=== PATIENT | female | born 1990 | race Caucasian/White ===

== ENCOUNTER 2020-01-28 08:29 | Inpatient (IN) | payer OTHER ==
[2020-01-28] MEDS ORDERED: Ondansetron 4 MG/2 ML SDV IVPUSH PRN (09:23)
[2020-01-28] MEDS ORDERED: Lidocaine 1% 50 ML MDV INJECT PRN (10:32)
[2020-01-28] MEDS ORDERED: Water For Irrigation,Sterile 1,000 ML Container IRR PRN (10:32)
[2020-01-28] MEDS ORDERED: Sodium Chloride 0.9% 10 ML SDV IV PRN ×2 (10:32→12:12)
[2020-01-28] MEDS ORDERED: Misoprostol 25 MCG (1/4 of 100 MCG) Tab VAG PRN (10:32)
[2020-01-28] MEDS ORDERED: Butorphanol 1 MG/ML SDV IVPUSH PRN (10:32)
[2020-01-28] MEDS ORDERED: Carboprost Tromethamine 250 MCG/1 ML Amp IM PRN (10:32)
[2020-01-28] MEDS ORDERED: Methylergonovine 0.2 MG/1 ML Amp IM PRN (10:32)
[2020-01-28] MEDS ORDERED: Terbutaline 1 MG/ML SDV SUBCUT PRN (10:32)
[2020-01-28] MEDS ORDERED: Sodium Chloride 0.9% 10 ML Syringe FLUSH PRN (10:32)
[2020-01-28] MEDS ORDERED: Misoprostol 200 MCG Tab PO PRN (10:32)
[2020-01-28] MEDS ORDERED: Tranexamic Acid 1,000 MG in Sodium Chloride 0.9% 100 ML IV PRN (10:32)
[2020-01-28 10:43] LABS: BLOOD UREA NITROGEN,BUN 9 mg/dL (7.0-18.0); CARBON DIOXIDE,CO2 23.7 mmol/L (21.0-32.0); CHLORIDE,CL 104 mmol/L (98-107); GLUCOSE RANDOM 98 mg/dL (74-106); SODIUM,NA 140 mmol/L (136-145)
[2020-01-28] MEDS ORDERED: Lactated Ringers 1,000 ML IV SCH (10:45)
[2020-01-28] MEDS ORDERED: Oxytocin/0.9 % Sodium Chloride 30 UNIT/500 ML BAG IV SCH ×2 (10:45)
[2020-01-28] MEDS ORDERED: Magnesium Sulfate/Water 2 GM in Premix Bag 1 BAG IV ONE (12:12)
[2020-01-28] MEDS ORDERED: Calcium Gluconate 10% 1 GM/10 ML SDV IV PRN (12:12)
[2020-01-28] MEDS ORDERED: Magnesium Sulfate/Water 4 GM in Premix Bag 1 BAG IV ONE (12:12)
[2020-01-28] MEDS ORDERED: Acetaminophen 500 MG Tab PO ONE (12:30)
[2020-01-28] MEDS: Magnesium Sulfate/Water 20 GM/500 ML BAG IV SCH (14:06)
[2020-01-28] MEDS: Misoprostol 25 MCG (1/4 of 100 MCG) Tab VAG PRN ×2 (15:24→21:27)
[2020-01-29] MEDS: Magnesium Sulfate/Water 20 GM/500 ML BAG IV SCH ×3 (00:09→20:19)
[2020-01-29] MEDS: Misoprostol 25 MCG (1/4 of 100 MCG) Tab VAG PRN ×2 (01:46→05:37)
[2020-01-29] MEDS: Nalbuphine 10 MG/1 ML Vial IVPUSH PRN ×2 (01:57→07:17)
[2020-01-29] MEDS: Sodium Chloride 0.9% 2.5 ML Syringe FLUSH PRN ×2 (01:59→07:17)
[2020-01-29] MEDS ORDERED: Misoprostol 25 MCG (1/4 of 100 MCG) Tab PO ONE (06:29)
[2020-01-29 06:53] LABS: BLOOD UREA NITROGEN,BUN 6 mg/dL (7.0-18.0); CARBON DIOXIDE,CO2 22.6 mmol/L (21.0-32.0); CHLORIDE,CL 104 mmol/L (98-107); GLUCOSE RANDOM 113 mg/dL (74-106); POTASSIUM,K 2.8 mmol/L (3.5-5.1); SODIUM,NA 139 mmol/L (136-145)
[2020-01-29] MEDS: Lactated Ringers 1,000 ML IV SCH ×2 (11:20→13:00)
[2020-01-29] MEDS ORDERED: Ropivacaine HCl/PF 100 ML ONE ×2 (12:20→22:11)
[2020-01-29] MEDS ORDERED: Ropivacaine 0.2% PF 2 MG/ML 20 ML SDV ONE (12:20)
[2020-01-29] MEDS ORDERED: fentaNYL 100 MCG/2 ML SDV ONE (12:20)
--- NOTE | 2020-01-29 13:04 | PCM.PREANE ---
Preanesthetic Assessment - Procedure Proposed Procedure: LINDA - Anesthesia/Transfusion/Family Hx Anesthesia History: Prior Anesthesia Without Reaction Family History of Anesthesia Reaction: No Transfusion History: No Prior Transfusion(s) Intubation History: Unknown - Review of Systems General: No Symptoms Pulmonary: No Symptoms Cardiovascular: Other ( induced HTN) Gastrointestinal: No Symptoms Neurological: No Symptoms Other: Reports: None (Anxious about situation. K 2.8) - Physical Assessment NPO Status Date: 01/29/20 NPO Status Time: 12:00 (Ice Chips) Height: 1.6 m Weight: 69.4 kg ASA Class: 3 Mental Status: Alert & Oriented x3 Airway Class: Mallampati = 2 Dentition: Reports: Normal Dentition Thyro-Mental Finger Breadths: 3 Mouth Opening Finger Breadths: 3 ROM/Head Extension: Full Lungs: Clear to Auscultation Cardiovascular: Regular Rate - Lab Values: Laboratory Last Values WBC 7.09 K/uL (4.0-11.0) 01/28/20 10:00 RBC 3.88 M/uL (4.30-5.90) L 01/28/20 10:00 Hgb 12.4 g/dL (12.0-16.0) 01/28/20 10:00 Hct 37.9 % (36.0-46.0) 01/28/20 10:00 MCV 97.7 fL (80.0-98.0) 01/28/20 10:00 MCH 32.0 pg (27.0-32.0) 01/28/20 10:00 MCHC 32.7 g/dL (31.0-37.0) 01/28/20 10:00 RDW Std Deviation 50.7 fl (28.0-62.0) 01/28/20 10:00 RDW Coeff of Hadley 14 % (11.0-15.0) 01/28/20 10:00 Plt Count 177 K/uL (150-400) 01/28/20 10:00 MPV 11.30 fL (7.40-12.00) 01/28/20 10:00 Neut % (Auto) 74.6 % (48.0-80.0) 01/28/20 10:00 Lymph % (Auto) 19.7 % (16.0-40.0) 01/28/20 10:00 [place] % (Auto) 4.9 % (0.0-15.0) 01/28/20 10:00 Eos % (Auto) 0.7 % (0.0-7.0) 01/28/20 10:00 Baso % (Auto) 0.1 % (0.0-1.5) 01/28/20 10:00 Neut # (Auto) 5.3 K/uL (1.4-5.7) 01/28/20 10:00 Lymph # (Auto) 1.4 K/uL (0.6-2.4) 01/28/20 10:00 [place] # (Auto) 0.4 K/uL (0.0-0.8) 01/28/20 10:00 Eos # (Auto) 0.1 K/uL (0.0-0.7) 01/28/20 10:00 Baso # (Auto) 0.0 K/uL (0.0-0.1) 01/28/20 10:00 Nucleated RBC % 0.0 /100WBC 01/28/20 10:00 Nucleated RBCs # 0 K/uL 01/28/20 10:00 Sodium 139 mmol/L (136-145) 01/29/20 06:05 Potassium 2.8 mmol/L (3.5-5.1) L 01/29/20 06:05 Chloride 104 mmol/L (98-107) 01/29/20 06:05 Carbon Dioxide 22.6 mmol/L (21.0-32.0) 01/29/20 06:05 BUN 6 mg/dL (7.0-18.0) L 01/29/20 06:05 Creatinine 0.5 mg/dL (0.6-1.0) L 01/29/20 06:05 Est Cr Clr Drug Dosing 134.86 mL/min 01/29/20 06:05 Estimated GFR (MDRD) > 60.0 ml/min 01/29/20 06:05 Glucose 113 mg/dL (74-106) H 01/29/20 06:05 POC Glucose 119 mg/dL (60-110) H 01/29/20 09:42 Uric Acid 3.6 mg/dL (2.6-7.2) 01/28/20 10:00 Calcium 7.3 mg/dL (8.5-10.1) L 01/29/20 06:05 Magnesium 5.7 mg/dL (1.8-2.4) H 01/29/20 12:10 Total Bilirubin 0.7 mg/dL (0.2-1.0) 01/29/20 06:05 AST 60 IU/L (15-37) H 01/29/20 06:05 ALT 137 IU/L (14-63) H 01/29/20 06:05 Alkaline Phosphatase 199 U/L (46-116) H 01/29/20 06:05 C-Reactive Protein <0.20 mg/dL (0.00-0.90) 01/28/20 18:05 Total Protein 6.1 g/dL (6.4-8.2) L 01/29/20 06:05 Albumin 2.5 g/dL (3.4-5.0) L 01/29/20 06:05 Globulin 3.6 g/dL (2.6-4.0) 01/29/20 06:05 Albumin/Globulin Ratio 0.7 (0.9-1.6) L 01/29/20 06:05 Ur Random Creatinine 10.5 mg/dL 01/28/20 10:00 U Random Total Protein < 6.0 mg/dL (<11.9) 01/28/20 10:00 Protein/Creatinin Ratio TNP 01/28/20 10:00 SARS-CoV-2 RNA (RT-PCR) NEGATIVE (NEGATIVE) 01/28/20 09:29 Blood Type A POSITIVE 01/28/20 10:00 Antibody Screen NEGATIVE 01/28/20 10:00 - Allergies Allergies/Adverse Reactions: Allergies Allergy/AdvReac Type Severity Reaction Status Date / Time No Known Allergies Allergy Verified 01/28/20 09:20 - Blood Blood Available: No Product(s) Available: None - Anesthesia Plan Pre-Op Medication Ordered: None - Acknowledgements Anesthesia Type Planned: Epidural Pt an Appropriate Candidate for the Planned Anesthesia: Yes Alternatives and Risks of Anesthesia Discussed w Pt/Guardian: Yes Pt/Guardian Understands and Agrees with Anesthesia Plan: Yes Additional Comments: Discussed. ? answered. K 2.8 On pitocin and Mg++. B/P 157/93. Will dose slowly. Dilation unknown, balloon in. Pain 01/03. 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: - Infectious Disease History Infectious Disease History: Reports: C-Difficile - CURRENT (IN HOUSE) MEDS Current Meds: Current Medications Butorphanol Tartrate (Stadol) 1 mg IVPUSH Q1H PRN PRN Reason: Pain Calcium Gluconate (Calcium Gluconate) 1 gm IV ASDIRECTED PRN PRN Reason: respiratory distress Carboprost Tromethamine (Hemabate Ds) 250 mcg IM ASDIRECTED PRN PRN Reason: Post Hemorrhage Oxytocin/Sodium Chloride (Oxytocin 30 Unit/500 Ml-Ns) 30 unit in 500 mls @ 2 mls/hr IV TITRATE DAVE; Protocol Last Admin: 01/29/20 11:22 Dose: 2 munits/min, 2 mls/hr Documented by: Lactated Ringer's (Ringers, Lactated) 1,000 mls @ 150 mls/hr IV ASDIRECTED DAVE Last Infusion: 01/28/20 13:16 Dose: 3 mls/hr Documented by: Oxytocin/Sodium Chloride (Oxytocin 30 Unit/500 Ml-Ns) 30 unit in 500 mls @ 999 mls/hr IV TITRATE DAVE Tranexamic Acid 1,000 mg/ (Sodium Chloride) 110 mls @ 660 mls/hr IV ONETIME PRN PRN Reason: Bleeding Magnesium Sulfate (Magnesium Sulfate In Water Premix) 20 gm in 500 mls @ 50 mls/hr IV ASDIRECTED DAVE; Protocol Last Admin: 01/29/20 10:14 Dose: 2 gm/hr, 50 mls/hr Documented by: Lidocaine HCl (Xylocaine 1%) 50 ml INJECT ONETIME PRN PRN Reason: Laceration repair Methylergonovine Maleate (Methergine) 0.2 mg IM ASDIRECTED PRN PRN Reason: Post Hemorrhage Misoprostol (Cytotec) 25 mcg VAG ONETIME PRN PRN Reason: Cervical Ripening Last Admin: 01/28/20 11:15 Dose: 25 mcg Documented by: Misoprostol (Cytotec) 25 mcg VAG Q4H PRN PRN Reason: Cervical Ripening Last Admin: 01/29/20 05:37 Dose: 25 mcg Documented by: Misoprostol (Cytotec) 200 mcg PO ONETIME PRN PRN Reason: Post Hemorrhage Nalbuphine HCl (Nubain) 10 mg IVPUSH Q1H PRN PRN Reason: Pain (severe 7-10) Last Admin: 01/29/20 07:17 Dose: 10 mg Documented by: Ondansetron HCl (Zofran) 4 mg IVPUSH Q4H PRN PRN Reason: Nausea/Vomiting Sodium Chloride (Saline Flush) 10 ml FLUSH ASDIRECTED PRN PRN Reason: Keep Vein Open Sodium Chloride (Saline Flush) 2.5 ml FLUSH ASDIRECTED PRN PRN Reason: Keep Vein Open Last Admin: 01/29/20 07:17 Dose: 2.5 ml Documented by: Sodium Chloride (Normal Saline) 10 ml IV ASDIRECTED PRN PRN Reason: IV Use Sodium Chloride (Normal Saline) 10 ml IV ASDIRECTED PRN PRN Reason: IV Use Sterile Water (Sterile Water For Irrigation) 1,000 ml IRR ASDIRECTED PRN PRN Reason: delivery Terbutaline Sulfate (Brethine) 0.25 mg SUBCUT ASDIRECTED PRN PRN Reason: Tacysystole Discontinued Medications Acetaminophen (Tylenol Extra Strength) 1,000 mg PO ONETIME ONE Stop: 01/28/20 12:31 Last Admin: 01/28/20 13:11 Dose: 1,000 mg Documented by: Fentanyl (Sublimaze) Confirm Administered Dose 100 mcg .ROUTE .STK-MED ONE Stop: 01/29/20 12:21 Magnesium Sulfate 4 gm/ Premix 100 mls @ 300 mls/hr IV BOLUS ONE Stop: 01/28/20 12:31 Last Admin: 01/28/20 13:45 Dose: 300 mls/hr Documented by: Magnesium Sulfate 2 gm/ Premix 50 mls @ 300 mls/hr IV ONETIME ONE Stop: 01/28/20 12:21 Last Admin: 01/28/20 13:16 Dose: 300 mls/hr Documented by: Ropivacaine (Naropin 0.2%) Confirm Administered Dose 100 mls @ as directed .ROUTE .STK-MED ONE Stop: 01/29/20 12:21 Misoprostol (Cytotec) 25 mcg PO ONETIME ONE Stop: 01/29/20 06:30 Last Admin: 01/29/20 06:38 Dose: 25 mcg Documented by: Ropivacaine (Naropin 0.2%) Confirm Administered Dose 20 ml .ROUTE .[facility] Stop: 01/29/20 12:21
--- NOTE | 2020-01-29 13:35 | PCM.SN.2 ---
- Free Text/Narrative Note: Requested for LINDA with PIH. BPs 150's/, K+ 2.8. Pain 6/10. On Mg++ and pitocin. Discussed. ? answered. Permit signed. Procedure without issues. Space on first pass. Test negative. Occlusive dressing. 12:43 Bolus given slowly, 3ml x 2 over ~6 minutes. BP stable. 20 minutes post, pain 0/10, level ~ T8. 13:21 Doing well. VSS. 2ml additional bolus given. 13:31 VSS 2ml additional bolus given 13:49 VSS Infusion started @ 6ml/hr with 4ml/q20 bolus. [id number]/ Pain 0/10. Tolerated well.
--- NOTE | 2020-01-29 19:11 | PCM.SN.2 ---
- Free Text/Narrative Note: Doing well. BPs 130/. Has used button x3. 4cm dilated. Will increase infusion to 8ml/hr and bolus to q15.
[2020-01-29] MEDS ORDERED: Labetalol 100 MG/20 ML MDV IVPUSH ONE (19:25)
[2020-01-29] MEDS: Acetaminophen 500 MG Tab PO PRN (20:08)
--- NOTE | 2020-01-29 22:24 | PCM.SN.2 ---
- Free Text/Narrative Note: Doing well. Bag changed, 100ml 0.2% Naropin hung. Settings unchanged. Good analgesia. VSS.
[2020-01-30] MEDS ORDERED: Labetalol 100 MG/20 ML MDV IVPUSH PRN (01:55)
[2020-01-30 02:45] LABS: BLOOD UREA NITROGEN,BUN 5 mg/dL (7.0-18.0); CARBON DIOXIDE,CO2 24.6 mmol/L (21.0-32.0); CHLORIDE,CL 103 mmol/L (98-107); GLUCOSE RANDOM 102 mg/dL (74-106); POTASSIUM,K 2.8 mmol/L (3.5-5.1); SODIUM,NA 140 mmol/L (136-145)
[2020-01-30] MEDS ORDERED: fentaNYL 100 MCG/2 ML SDV ONE (05:03)
[2020-01-30] MEDS ORDERED: Ropivacaine 0.2% PF 2 MG/ML 20 ML SDV ONE (05:04)
--- NOTE | 2020-01-30 05:23 | PCM.SN.2 ---
- Free Text/Narrative Note: Increasing discomfort. Pitocin at max dose. Bolus of 5ml 0.2% Naropin with 100 mcg fentanyl added. Pain lessening. VSS. Rate increased to 10 ml. Pain significantly less 10 minutes post.
[2020-01-30] MEDS ORDERED: Citric Acid/Sodium Citrate Solution 30 ML Cup PO ONE (05:47)
[2020-01-30] MEDS ORDERED: ceFAZolin 2 GM in Premix Bag 1 BAG IV ONE (05:48)
[2020-01-30] MEDS ORDERED: Propofol 200 MG/20 ML SDV ONE (06:09)
[2020-01-30] MEDS: Magnesium Sulfate/Water 20 GM/500 ML BAG IV SCH ×2 (06:15→16:01)
[2020-01-30] MEDS ORDERED: Morphine PF 10 MG/10 ML SDV ONE (06:20)
[2020-01-30] MEDS ORDERED: Citric Acid/Sodium Citrate Solution 30 ML Cup ONE (06:22)
[2020-01-30] MEDS ORDERED: fentaNYL 100 MCG/2 ML SDV IVPUSH PRN (06:24)
[2020-01-30] MEDS ORDERED: Acetaminophen/oxyCODONE 325-5 MG Tab PO PRN ×2 (06:24→08:28)
[2020-01-30] MEDS ORDERED: Nalbuphine 10 MG/1 ML Vial IVPUSH PRN (06:24)
[2020-01-30] MEDS ORDERED: Ketorolac 30 MG/ML SDV ONE (08:24)
[2020-01-30] MEDS ORDERED: Oxytocin 10 Units/1 ML SDV IM PRN (08:28)
[2020-01-30] MEDS ORDERED: Lanolin 100% Cream 7 GM Tube TOP PRN (08:28)
[2020-01-30] MEDS ORDERED: Tranexamic Acid 1,000 MG in Sodium Chloride 0.9% 100 ML IV PRN (08:28)
[2020-01-30] MEDS ORDERED: Misoprostol 200 MCG Tab RECTAL PRN (08:28)
[2020-01-30] MEDS ORDERED: Methylergonovine 0.2 MG/1 ML Amp IM PRN (08:28)
[2020-01-30] MEDS ORDERED: Bisacodyl 10 MG Supp RECTAL PRN (08:28)
[2020-01-30] MEDS ORDERED: Ondansetron 4 MG/2 ML SDV IVPUSH PRN (08:28)
[2020-01-30] MEDS ORDERED: diphenhydrAMINE 50 MG/ML SDV IVPUSH PRN (08:28)
[2020-01-30] MEDS ORDERED: Oxytocin/Lactated Ringers 30 UNIT/500 ML BAG IV SCH (08:30)
[2020-01-30] MEDS: Ketorolac 30 MG/ML SDV IVPUSH SCH ×3 (08:30→20:44)
[2020-01-30] MEDS ORDERED: Lactated Ringers 1,000 ML IV SCH (08:30)
--- NOTE | 2020-01-30 08:37 | PCM.OPNOTE ---
- General Post-Op/Procedure Note Date of Surgery/Procedure: 01/30/20 Operative Procedure(s): Primary Lower transverse Findings: Live male delivered at 655am , 8/9 weight 3130g Pre Op Diagnosis: 30yo @ 38w6d with severe preclampsia remote from delivery. GDMA 1 Post-Op Diagnosis: same Anesthesia Technique: Epidural Primary Surgeon: Yun Castellano Secondary Surgeon: MS Harrington Anesthesia Provider: Vijay Michaels Pathology: placenta Fluid Replacement, Intraop: 800 Output, Urine Amount: 100 EBL in mLs: 800 Complications: None Condition: Good Free Text/Narrative:: Intake & Output 01/29/20 01/30/20 01/30/20 22:59 06:59 14:59 Intake Total 495 Output Total 1525 125 Balance -1030 -125
--- NOTE | 2020-01-30 09:00 | PCM.POSTAN ---
POST ANESTHESIA ASSESSMENT - MENTAL STATUS Mental Status: Alert - RESPIRATORY Respiratory Status: Respiratory Rate WNL - CARDIOVASCULAR CV Status: Pulse Rate WNL - GASTROINTESTINAL GI Status: No Symptoms - PAIN Pain Score: 0 - POST OP HYDRATION Hydration Status: Adequate & Stable - OBSERVATIONS Free Text/Narrative:: Doing well.
--- NOTE | 2020-01-30 09:01 | PCM.SN.2 ---
- Free Text/Narrative Note: Epidural pulled, tip intact.
[2020-01-30] MEDS: Docusate Sodium 100 MG Cap PO SCH ×2 (17:48→20:52)
[2020-01-31] MEDS: Magnesium Sulfate/Water 20 GM/500 ML BAG IV SCH (02:10)
[2020-01-31] MEDS: Ketorolac 30 MG/ML SDV IVPUSH SCH ×2 (02:36→08:54)
--- NOTE | 2020-01-31 07:30 | OR ---
SURGEON: VAMSI YEH DATE OF PROCEDURE: 01/30/2020 PREOPERATIVE DIAGNOSES: 30-year-old G1, P0 at 38 weeks 6 days for primary secondary to severe preeclampsia remote from delivery, gestational diabetes mellitus A1. POSTOPERATIVE DIAGNOSES: 30-year-old G1, P0 at 38 weeks 6 days for primary secondary to severe preeclampsia remote from delivery, gestational diabetes mellitus A1. PROCEDURE PERFORMED: Primary section. ESTIMATED BLOOD LOSS: 800. IV FLUID: 1000. URINE OUTPUT: 125. ANESTHESIA: Epidural. ANESTHESIOLOGIST: Vijay Ann. SENIOR CYTOTECHNOLOGIST: Medical student, Davis Salazar. NOTES AND FINDINGS: Live male delivered at 6:55. score was 8 and 9. Weight is 3130 g. BRIEF HISTORY: The patient is a 30-year-old G1, P0 at 38 weeks, came in complaining of tunnel vision, headaches. She was having elevated blood pressures of 120s to 150s over 80s to 90s. AST and ALT were elevated. As a result, she was kept for induction of labor. Induction of labor was started with Cytotec. She received 5 doses of Cytotec and then followed by AROM done which was clear. She was started on Pitocin. Pitocin was increased all the way to about 30 units. The patient was making no change from 5, 60, -2. As a result, the patient wanted a . Her AST and ALT were also trending up. So, the patient was explained the risks, benefits, and alternatives and she decided to proceed. Tracing was category 1 throughout the induction period. DESCRIPTION OF PROCEDURE: The patient was taken to the operating room where epidural anesthesia was topped off. She was prepared and draped in the dorsal supine position with a leftward tilt. A Pfannenstiel skin incision was made with a scalpel and carried down to the fascia with the Bovie. The fascia was incised and extended laterally. The rectus muscle was in the midline down to the level of the pubic symphysis. Then, the peritoneum was entered in, exposed the lower uterine segment. The peritoneum was extended upwards and outwards. The Alec retractor was placed in to expose the lower uterine segment. The bladder flap was created without any difficulty. The scalpel was used to make a lower uterine incision which was extended upwards and laterally. The fetus was in cephalic position and was brought to the level of the incision. With fundal pressure, it was delivered without difficulty and then cord clamping was done. Cord blood gases were obtained. Placenta was then delivered via manual massage of the uterine fundus. The uterus was then cleaned with a laparotomy sponge. The uterus was repaired in 2 layers, 1st layer with 0 Vicryl, 2nd layer was with 0 Monocryl. Adnexa were inspected and noted to be normal. Then, the Alec retractor was removed and again the bladder and the uterine incision were inspected and noted to be hemostatic. Then peritoneum was closed in with 2-0 Vicryl and the rectus muscle was apposed in the midline also and the fascia was then closed with 0 Vicryl in a continuous fashion, and the skin was closed with 3-0 Monocryl on a Sigifredo needle. All instruments and pad counts were correct x2. The patient tolerated the procedure well and was taken to the recovery room in stable condition. MARYANN WOOD /[id number]
[2020-01-31] MEDS: Docusate Sodium 100 MG Cap PO SCH ×2 (08:53→21:19)
--- NOTE | 2020-01-31 08:53 | PCM.PNPP ---
- General Info Date of Service: 01/31/20 Subjective Update: Denies preeclampsia symptoms Functional Status: Reports: Pain Controlled, Tolerating Diet. Denies: Ambulating (has not ambulated due to magnesium), Urinating (has not voided due to fan catheter with magnesium) - Review of Systems General: Reports: No Symptoms HEENT: Reports: No Symptoms Pulmonary: Reports: No Symptoms Cardiovascular: Reports: No Symptoms Gastrointestinal: Reports: No Symptoms Genitourinary: Reports: No Symptoms Musculoskeletal: Reports: No Symptoms Skin: Reports: No Symptoms Neurological: Reports: No Symptoms Psychiatric: Reports: No Symptoms - Patient Data Vital Signs - Most Recent: Last Vital Signs Temp 37.1 C 01/31/20 03:00 Pulse 72 01/31/20 07:00 Resp 16 01/31/20 07:00 BP 138/81 01/31/20 07:00 Pulse Ox 99 01/31/20 07:00 Weight - Most Recent: 69.4 kg Lab Results - Last 24 Hours: Laboratory Results - last 24 hr 01/30/20 01/30/20 01/30/20 Range/Units 08:07 14:03 20:08 WBC (4.0-11.0) K/uL RBC (4.30-5.90) M/uL Hgb (12.0-16.0) g/dL Hct (36.0-46.0) % MCV (80.0-98.0) fL MCH (27.0-32.0) pg MCHC (31.0-37.0) g/dL RDW Std Deviation (28.0-62.0) fl RDW Coeff of Hadley (11.0-15.0) % Plt Count (150-400) K/uL MPV (7.40-12.00) fL Neut % (Auto) (48.0-80.0) % Lymph % (Auto) (16.0-40.0) % [place] % (Auto) (0.0-15.0) % Eos % (Auto) (0.0-7.0) % Baso % (Auto) (0.0-1.5) % Neut # (Auto) (1.4-5.7) K/uL Lymph # (Auto) (0.6-2.4) K/uL [place] # (Auto) (0.0-0.8) K/uL Eos # (Auto) (0.0-0.7) K/uL Baso # (Auto) (0.0-0.1) K/uL Nucleated RBC % /100WBC Nucleated RBCs # K/uL Magnesium 6.0 H 6.3 H 6.1 H (1.8-2.4) mg/dL 01/31/20 01/31/20 Range/Units 02:00 02:00 WBC 13.18 H (4.0-11.0) K/uL RBC 3.58 L (4.30-5.90) M/uL Hgb 11.4 L (12.0-16.0) g/dL Hct 34.8 L (36.0-46.0) % MCV 97.2 (80.0-98.0) fL MCH 31.8 (27.0-32.0) pg MCHC 32.8 (31.0-37.0) g/dL RDW Std Deviation 52.1 (28.0-62.0) fl RDW Coeff of [place] 15 (11.0-15.0) % Plt Count 169 (150-400) K/uL MPV 10.80 (7.40-12.00) fL Neut % (Auto) 80.5 H (48.0-80.0) % Lymph % (Auto) 14.3 L (16.0-40.0) % [place] % (Auto) 4.5 (0.0-15.0) % Eos % (Auto) 0.5 (0.0-7.0) % Baso % (Auto) 0.2 (0.0-1.5) % Neut # (Auto) 10.6 H (1.4-5.7) K/uL Lymph # (Auto) 1.9 (0.6-2.4) K/uL [place] # (Auto) 0.6 (0.0-0.8) K/uL Eos # (Auto) 0.1 (0.0-0.7) K/uL Baso # (Auto) 0.0 (0.0-0.1) K/uL Nucleated RBC % 0.0 /100WBC Nucleated RBCs # 0 K/uL Magnesium 6.1 H (1.8-2.4) mg/dL Med Orders - Current: Current Medications Acetaminophen (Tylenol Extra Strength) 1,000 mg PO Q6H PRN PRN Reason: Headache Last Admin: 01/29/20 20:08 Dose: 1,000 mg Documented by: Bisacodyl (Dulcolax) 10 mg RECTAL ONETIME PRN PRN Reason: Constipation Calcium Gluconate (Calcium Gluconate) 1 gm IV ASDIRECTED PRN PRN Reason: respiratory distress Carboprost Tromethamine (Hemabate Ds) 250 mcg IM ASDIRECTED PRN PRN Reason: Post Hemorrhage Diphenhydramine HCl (Benadryl) 25 mg IVPUSH Q6H PRN PRN Reason: Itching or Nausea Docusate Sodium (Colace) 100 mg PO BID DAVE Last Admin: 01/30/20 20:52 Dose: 100 mg Documented by: Emollient Ointment (Lansinoh Hpa) 0 gm TOP ASDIRECTED PRN PRN Reason: Sore Nipples Oxytocin/Sodium Chloride (Oxytocin 30 Unit/500 Ml-Ns) 30 unit in 500 mls @ 2 mls/hr IV TITRATE DAVE; Protocol Last Titration: 01/30/20 03:48 Dose: 30 munits/min, 30 mls/hr Documented by: Lactated Ringer's (Ringers, Lactated) 1,000 mls @ 150 mls/hr IV ASDIRECTED DAVE Last Infusion: 01/28/20 13:16 Dose: 3 mls/hr Documented by: Oxytocin/Sodium Chloride (Oxytocin 30 Unit/500 Ml-Ns) 30 unit in 500 mls @ 999 mls/hr IV TITRATE DAVE Tranexamic Acid 1,000 mg/ (Sodium Chloride) 110 mls @ 660 mls/hr IV ONETIME PRN PRN Reason: Bleeding Lactated Ringer's (Ringers, Lactated) 1,000 mls @ 5 mls/hr IV ASDIRECTED DAVE Last Infusion: 01/29/20 14:00 Dose: 5 mls/hr Documented by: Lactated Ringer's (Ringers, Lactated) 1,000 mls @ 125 mls/hr IV ASDIRECTED DAVE Oxytocin/Lactated Ringer's (Pitocin In Lr 30 Units/500 Ml) 30 unit in 500 mls @ 125 mls/hr IV TITRATE DAVE; Protocol Tranexamic Acid 1,000 mg/ (Sodium Chloride) 110 mls @ 660 mls/hr IV ONETIME PRN PRN Reason: Bleeding Ibuprofen (Motrin) 800 mg PO Q8H PRN PRN Reason: mild pain or fever Labetalol HCl (Normodyne) 20 mg IVPUSH Q10M PRN; Protocol PRN Reason: Hypertension Lidocaine HCl (Xylocaine 1%) 50 ml INJECT ONETIME PRN PRN Reason: Laceration repair Methylergonovine Maleate (Methergine) 0.2 mg IM ASDIRECTED PRN PRN Reason: Post Hemorrhage Methylergonovine Maleate (Methergine) 0.2 mg IM ONETIME PRN PRN Reason: Excessive Vaginal Bleeding Misoprostol (Cytotec) 200 mcg PO ONETIME PRN PRN Reason: Post Hemorrhage Misoprostol (Cytotec) 1,000 mcg RECTAL ONETIME PRN PRN Reason: excessive bleeding Ondansetron HCl (Zofran) 4 mg IVPUSH Q4H PRN PRN Reason: Nausea/Vomiting Ondansetron HCl (Zofran) 4 mg IVPUSH Q4H PRN PRN Reason: Nausea/Vomiting Oxycodone/Acetaminophen (Percocet 325-5 Mg) 1 tab PO ONETIME PRN PRN Reason: Pain (moderate 4-6) Last Admin: 01/31/20 01:18 Dose: 1 tab Documented by: Oxycodone/Acetaminophen (Percocet 325-5 Mg) 1 tab PO Q4H PRN PRN Reason: Pain (moderate 4-6) Oxycodone/Acetaminophen (Percocet 325-5 Mg) 2 tab PO Q4H PRN PRN Reason: Pain (moderate 4-6) Oxytocin (Pitocin) 10 unit IM ASDIRECTED PRN PRN Reason: Excessive Vaginal Bleeding Sodium Chloride (Saline Flush) 10 ml FLUSH ASDIRECTED PRN PRN Reason: Keep Vein Open Sodium Chloride (Saline Flush) 2.5 ml FLUSH ASDIRECTED PRN PRN Reason: Keep Vein Open Last Admin: 01/29/20 07:17 Dose: 2.5 ml Documented by: Sodium Chloride (Normal Saline) 10 ml IV ASDIRECTED PRN PRN Reason: IV Use Sodium Chloride (Normal Saline) 10 ml IV ASDIRECTED PRN PRN Reason: IV Use Sterile Water (Sterile Water For Irrigation) 1,000 ml IRR ASDIRECTED PRN PRN Reason: delivery Discontinued Medications Acetaminophen (Tylenol Extra Strength) 1,000 mg PO ONETIME ONE Stop: 01/28/20 12:31 Last Admin: 01/28/20 13:11 Dose: 1,000 mg Documented by: Butorphanol Tartrate (Stadol) 1 mg IVPUSH Q1H PRN PRN Reason: Pain Citric Acid/Sodium Citrate (Bicitra Solution) 30 ml PO ONETIME ONE Stop: 01/30/20 05:48 Last Admin: 01/30/20 06:25 Dose: 15 ml Documented by: Citric Acid/Sodium Citrate (Bicitra Solution) Confirm Administered Dose 30 ml .ROUTE .STK-MED ONE Stop: 01/30/20 06:23 Fentanyl (Sublimaze) Confirm Administered Dose 100 mcg .ROUTE .STK-MED ONE Stop: 01/29/20 12:21 Fentanyl (Sublimaze) Confirm Administered Dose 100 mcg .ROUTE .STK-MED ONE Stop: 01/30/20 05:04 Fentanyl (Sublimaze) 50 mcg IVPUSH Q5M PRN PRN Reason: Pain (severe 7-10) Stop: 01/31/20 06:24 Magnesium Sulfate 4 gm/ Premix 100 mls @ 300 mls/hr IV BOLUS ONE Stop: 01/28/20 12:31 Last Admin: 01/28/20 13:45 Dose: 300 mls/hr Documented by: Magnesium Sulfate 2 gm/ Premix 50 mls @ 300 mls/hr IV ONETIME ONE Stop: 01/28/20 12:21 Last Admin: 01/28/20 13:16 Dose: 300 mls/hr Documented by: Magnesium Sulfate (Magnesium Sulfate In Water Premix) 20 gm in 500 mls @ 50 mls/hr IV ASDIRECTED [facility]; Protocol Last Admin: 01/31/20 02:10 Dose: 2 gm/hr, 50 mls/hr Documented by: Ropivacaine (Naropin 0.2%) Confirm Administered Dose 100 mls @ as directed .ROUTE .STK-MED ONE Stop: 01/29/20 12:21 Ropivacaine (Naropin 0.2%) Confirm Administered Dose 100 mls @ as directed .ROUTE .STK-MED ONE Stop: 01/29/20 22:12 Cefazolin Sodium/Dextrose 2 gm (/ Premix) 50 mls @ 100 mls/hr IV ONETIME ONE Stop: 01/30/20 06:17 Acetaminophen (Ofirmev) Confirm Administered Dose 100 mls @ as directed .ROUTE .STK-MED ONE Stop: 01/30/20 05:54 Ketorolac Tromethamine (Toradol) Confirm Administered Dose 30 mg .ROUTE .STK-MED ONE Stop: 01/30/20 08:25 Last Admin: 01/30/20 08:30 Dose: 30 mg Documented by: Ketorolac Tromethamine (Toradol) 30 mg IVPUSH Q6H DAVE Stop: 01/31/20 08:31 Last Admin: 01/31/20 02:36 Dose: 30 mg Documented by: Labetalol HCl (Normodyne) 20 mg IVPUSH ONETIME ONE; Protocol Stop: 01/29/20 19:26 Misoprostol (Cytotec) 25 mcg VAG ONETIME PRN PRN Reason: Cervical Ripening Last Admin: 01/28/20 11:15 Dose: 25 mcg Documented by: Misoprostol (Cytotec) 25 mcg VAG Q4H PRN PRN Reason: Cervical Ripening Last Admin: 01/29/20 05:37 Dose: 25 mcg Documented by: Misoprostol (Cytotec) 25 mcg PO ONETIME ONE Stop: 01/29/20 06:30 Last Admin: 01/29/20 06:38 Dose: 25 mcg Documented by: Morphine Sulfate (Duramorph Pf) Confirm Administered Dose 10 mg .ROUTE .STK-MED ONE Stop: 01/30/20 06:21 Nalbuphine HCl (Nubain) 10 mg IVPUSH Q1H PRN PRN Reason: Pain (severe 7-10) Last Admin: 01/29/20 07:17 Dose: 10 mg Documented by: Nalbuphine HCl (Nubain) 2.5 mg IVPUSH Q3H PRN PRN Reason: Pruritis Stop: 01/31/20 06:24 Propofol (Diprivan 20 Ml) Confirm Administered Dose 200 mg .ROUTE .STK-MED ONE Stop: 01/30/20 06:10 Ropivacaine (Naropin 0.2%) Confirm Administered Dose 20 ml .ROUTE .STK-MED ONE Stop: 01/29/20 12:21 Ropivacaine (Naropin 0.2%) Confirm Administered Dose 20 ml .ROUTE .STK-MED ONE Stop: 01/30/20 05:05 Terbutaline Sulfate (Brethine) 0.25 mg SUBCUT ASDIRECTED PRN PRN Reason: Tacysystole - Infant Interaction Infant Disposition, : [place] in Room with Family Infant Feeding: Breastfed Infant; Nursed Well Support Person: - Recovery Exam Fundal Tone: Firm Fundal Level: 1 Fingerbreadths Below Umbilicus Fundal Placement: Midline Lochia Amount: Small Lochia Color: Rubra/Red - Exam General: Alert, Oriented Neck: Supple Lungs: Normal Respiratory Effort GI/Abdominal Exam: Soft, Non-Tender, No Distention Extremities: Non-Tender Skin: Warm, Dry, Intact Wound/Incisions: Dressing Dry and Intact Neurological: No New Focal Deficit Psy/Mental Status: Alert, Normal Affect, Normal Mood - Problem List & Annotations (1) delivery delivered SNOMED Code(s): 846443631 Code(s): O82 - ENCOUNTER FOR DELIVERY WITHOUT INDICATION Status: Acute Current Visit: Yes (2) Pre-eclampsia, severe, delivered SNOMED Code(s): 628720251, 591915752 Code(s): O14.14 - SEVERE PRE-ECLAMPSIA COMPLICATING CHILDBIRTH Status: Acute Current Visit: Yes - Problem List Review Problem List Initiated/Reviewed/Updated: Yes - Assessment Assessment:: 30yo s/p 1LTCD for failed IOL, being induced for preeclampsia with severe features - Plan Plan:: 1. Preeclampsia w/ severe features- s/p magnesium for seizure prophylaxis. Monitor BP and for return of symptoms. 2. GDMA1 - will need 2hr GTT . 3. 1LTCD - routine postoperative care. Encourage ambulation today. 4. Encourage . 5. Dispo - possible discharge home tomorrow if blood pressures controlled, may require stay until POD#3.
--- NOTE | 2020-01-31 09:48 | PCM48HPAN ---
Post Anesthesia Note - EVALUATION WITHIN 48HRS OF ANESTHETIC Vital Signs in Normal Range: Yes Patient Participated in Evaluation: Yes Respiratory Function Stable: Yes Airway Patent: Yes Cardiovascular Function Stable: Yes Hydration Status Stable: Yes Pain Control Satisfactory: Yes Nausea and Vomiting Control Satisfactory: Yes Mental Status Recovered: Yes Vital Signs: Last Vital Signs Temp 36.4 C 01/31/20 08:45 Pulse 90 01/31/20 08:45 Resp 16 01/31/20 08:45 BP 160/102 H 01/31/20 08:45 Pulse Ox 97 01/31/20 08:45
[2020-01-31] MEDS: Acetaminophen 500 MG Tab PO PRN (13:20)
[2020-01-31] MEDS: Labetalol 100 MG Tab PO SCH ×2 (13:21→21:19)
[2020-01-31] MEDS: Ibuprofen 800 MG Tab PO PRN (17:48)
[2020-01-31] MEDS: Acetaminophen/oxyCODONE 325-5 MG Tab PO PRN (22:25)
[2020-02-01] MEDS: Ibuprofen 800 MG Tab PO PRN ×3 (03:39→20:12)
[2020-02-01] MEDS: Acetaminophen/oxyCODONE 325-5 MG Tab PO PRN ×3 (03:40→16:39)
--- NOTE | 2020-02-01 07:53 | PCM.PNPP ---
<Davis Salazar - Last Filed: 02/01/20 08:11> - General Info Date of Service: 02/01/20 Admission Dx/Problem (Free Text): S/P LTCD Subjective Update: Pt doing better today. Has ambulated without complications. Has voided urine. is going well. She is tolerating oral intake with no nausea or vomiting. Her pain has been tolerable overall, but can increase to 7-8/10 when at its worst. Bleeding has been minimal. Functional Status: Reports: Pain Controlled, Tolerating Diet, Ambulating, Urinating - Review of Systems General: Reports: No Symptoms HEENT: Reports: No Symptoms Pulmonary: Reports: No Symptoms Cardiovascular: Reports: No Symptoms Gastrointestinal: Reports: Abdominal Pain. Denies: Diarrhea, Nausea, Vomiting Genitourinary: Reports: No Symptoms Musculoskeletal: Reports: No Symptoms Skin: Reports: No Symptoms Neurological: Reports: No Symptoms Psychiatric: Reports: No Symptoms - General Info Date of Service: 02/01/20 - Patient Data Vital Signs - Most Recent: Last Vital Signs Temp 97.8 F 02/01/20 00:45 Pulse 68 02/01/20 00:45 Resp 16 02/01/20 00:45 BP 134/74 02/01/20 00:45 Pulse Ox 98 02/01/20 00:45 Weight - Most Recent: 69.4 kg Med Orders - Current: Current Medications Acetaminophen (Tylenol Extra Strength) 1,000 mg PO Q6H PRN PRN Reason: Headache Last Admin: 01/31/20 13:20 Dose: 1,000 mg Documented by: Bisacodyl (Dulcolax) 10 mg RECTAL ONETIME PRN PRN Reason: Constipation Calcium Gluconate (Calcium Gluconate) 1 gm IV ASDIRECTED PRN PRN Reason: respiratory distress Carboprost Tromethamine (Hemabate Ds) 250 mcg IM ASDIRECTED PRN PRN Reason: Post Hemorrhage Diphenhydramine HCl (Benadryl) 25 mg IVPUSH Q6H PRN PRN Reason: Itching or Nausea Docusate Sodium (Colace) 100 mg PO BID DAVE Last Admin: 01/31/20 21:19 Dose: 100 mg Documented by: Emollient Ointment (Lansinoh Hpa) 0 gm TOP ASDIRECTED PRN PRN Reason: Sore Nipples Last Admin: 01/31/20 21:17 Dose: 1 tube Documented by: Oxytocin/Sodium Chloride (Oxytocin 30 Unit/500 Ml-Ns) 30 unit in 500 mls @ 2 mls/hr IV TITRATE [facility]; Protocol Last Titration: 01/30/20 03:48 Dose: 30 munits/min, 30 mls/hr Documented by: Lactated Ringer's (Ringers, Lactated) 1,000 mls @ 150 mls/hr IV ASDIRECTED [facility] Last Infusion: 01/28/20 13:16 Dose: 3 mls/hr Documented by: Oxytocin/Sodium Chloride (Oxytocin 30 Unit/500 Ml-Ns) 30 unit in 500 mls @ 999 mls/hr IV TITRATE DAVE Tranexamic Acid 1,000 mg/ (Sodium Chloride) 110 mls @ 660 mls/hr IV ONETIME PRN PRN Reason: Bleeding Lactated Ringer's (Ringers, Lactated) 1,000 mls @ 5 mls/hr IV ASDIRECTED [facility] Last Infusion: 01/29/20 14:00 Dose: 5 mls/hr Documented by: Lactated Ringer's (Ringers, Lactated) 1,000 mls @ 125 mls/hr IV ASDIRECTED [facility] Oxytocin/Lactated Ringer's (Pitocin In Lr 30 Units/500 Ml) 30 unit in 500 mls @ 125 mls/hr IV TITRATE [facility]; Protocol Tranexamic Acid 1,000 mg/ (Sodium Chloride) 110 mls @ 660 mls/hr IV ONETIME PRN PRN Reason: Bleeding Ibuprofen (Motrin) 800 mg PO Q8H PRN PRN Reason: mild pain or fever Last Admin: 02/01/20 03:39 Dose: 800 mg Documented by: Labetalol HCl (Normodyne) 20 mg IVPUSH Q10M PRN; Protocol PRN Reason: Hypertension Labetalol HCl (Normodyne) 100 mg PO BID [facility] Last Admin: 01/31/20 21:19 Dose: 100 mg Documented by: Lidocaine HCl (Xylocaine 1%) 50 ml INJECT ONETIME PRN PRN Reason: Laceration repair Methylergonovine Maleate (Methergine) 0.2 mg IM ASDIRECTED PRN PRN Reason: Post Hemorrhage Methylergonovine Maleate (Methergine) 0.2 mg IM ONETIME PRN PRN Reason: Excessive Vaginal Bleeding Misoprostol (Cytotec) 200 mcg PO ONETIME PRN PRN Reason: Post Hemorrhage Misoprostol (Cytotec) 1,000 mcg RECTAL ONETIME PRN PRN Reason: excessive bleeding Ondansetron HCl (Zofran) 4 mg IVPUSH Q4H PRN PRN Reason: Nausea/Vomiting Ondansetron HCl (Zofran) 4 mg IVPUSH Q4H PRN PRN Reason: Nausea/Vomiting Oxycodone/Acetaminophen (Percocet 325-5 Mg) 1 tab PO ONETIME PRN PRN Reason: Pain (moderate 4-6) Last Admin: 01/31/20 01:18 Dose: 1 tab Documented by: Oxycodone/Acetaminophen (Percocet 325-5 Mg) 1 tab PO Q4H PRN PRN Reason: Pain (moderate 4-6) Last Admin: 02/01/20 07:43 Dose: 1 tab Documented by: Oxycodone/Acetaminophen (Percocet 325-5 Mg) 2 tab PO Q4H PRN PRN Reason: Pain (moderate 4-6) Oxytocin (Pitocin) 10 unit IM ASDIRECTED PRN PRN Reason: Excessive Vaginal Bleeding Sodium Chloride (Saline Flush) 10 ml FLUSH ASDIRECTED PRN PRN Reason: Keep Vein Open Sodium Chloride (Saline Flush) 2.5 ml FLUSH ASDIRECTED PRN PRN Reason: Keep Vein Open Last Admin: 01/29/20 07:17 Dose: 2.5 ml Documented by: Sodium Chloride (Normal Saline) 10 ml IV ASDIRECTED PRN PRN Reason: IV Use Sodium Chloride (Normal Saline) 10 ml IV ASDIRECTED PRN PRN Reason: IV Use Sterile Water (Sterile Water For Irrigation) 1,000 ml IRR ASDIRECTED PRN PRN Reason: delivery Discontinued Medications Acetaminophen (Tylenol Extra Strength) 1,000 mg PO ONETIME ONE Stop: 01/28/20 12:31 Last Admin: 01/28/20 13:11 Dose: 1,000 mg Documented by: Butorphanol Tartrate (Stadol) 1 mg IVPUSH Q1H PRN PRN Reason: Pain Citric Acid/Sodium Citrate (Bicitra Solution) 30 ml PO ONETIME ONE Stop: 01/30/20 05:48 Last Admin: 01/30/20 06:25 Dose: 15 ml Documented by: Citric Acid/Sodium Citrate (Bicitra Solution) Confirm Administered Dose 30 ml .ROUTE .STK-MED ONE Stop: 01/30/20 06:23 Fentanyl (Sublimaze) Confirm Administered Dose 100 mcg .ROUTE .STK-MED ONE Stop: 01/29/20 12:21 Fentanyl (Sublimaze) Confirm Administered Dose 100 mcg .ROUTE .STK-MED ONE Stop: 01/30/20 05:04 Fentanyl (Sublimaze) 50 mcg IVPUSH Q5M PRN PRN Reason: Pain (severe 7-10) Stop: 01/31/20 06:24 Magnesium Sulfate 4 gm/ Premix 100 mls @ 300 mls/hr IV BOLUS ONE Stop: 01/28/20 12:31 Last Admin: 01/28/20 13:45 Dose: 300 mls/hr Documented by: Magnesium Sulfate 2 gm/ Premix 50 mls @ 300 mls/hr IV ONETIME ONE Stop: 01/28/20 12:21 Last Admin: 01/28/20 13:16 Dose: 300 mls/hr Documented by: Magnesium Sulfate (Magnesium Sulfate In Water Premix) 20 gm in 500 mls @ 50 mls/hr IV ASDIRECTED [facility]; Protocol Last Admin: 01/31/20 02:10 Dose: 2 gm/hr, 50 mls/hr Documented by: Ropivacaine (Naropin 0.2%) Confirm Administered Dose 100 mls @ as directed .ROUTE .STK-MED ONE Stop: 01/29/20 12:21 Ropivacaine (Naropin 0.2%) Confirm Administered Dose 100 mls @ as directed .ROUTE .STK-MED ONE Stop: 01/29/20 22:12 Cefazolin Sodium/Dextrose 2 gm (/ Premix) 50 mls @ 100 mls/hr IV ONETIME ONE Stop: 01/30/20 06:17 Acetaminophen (Ofirmev) Confirm Administered Dose 100 mls @ as directed .ROUTE .STK-MED ONE Stop: 01/30/20 05:54 Ketorolac Tromethamine (Toradol) Confirm Administered Dose 30 mg .ROUTE .STK-MED ONE Stop: 01/30/20 08:25 Last Admin: 01/30/20 08:30 Dose: 30 mg Documented by: Ketorolac Tromethamine (Toradol) 30 mg IVPUSH Q6H DAVE Stop: 01/31/20 08:31 Last Admin: 01/31/20 08:54 Dose: 30 mg Documented by: Labetalol HCl (Normodyne) 20 mg IVPUSH ONETIME ONE; Protocol Stop: 01/29/20 19:26 Misoprostol (Cytotec) 25 mcg VAG ONETIME PRN PRN Reason: Cervical Ripening Last Admin: 01/28/20 11:15 Dose: 25 mcg Documented by: Misoprostol (Cytotec) 25 mcg VAG Q4H PRN PRN Reason: Cervical Ripening Last Admin: 01/29/20 05:37 Dose: 25 mcg Documented by: Misoprostol (Cytotec) 25 mcg PO ONETIME ONE Stop: 01/29/20 06:30 Last Admin: 01/29/20 06:38 Dose: 25 mcg Documented by: Morphine Sulfate (Duramorph Pf) Confirm Administered Dose 10 mg .ROUTE .STK-MED ONE Stop: 01/30/20 06:21 Nalbuphine HCl (Nubain) 10 mg IVPUSH Q1H PRN PRN Reason: Pain (severe 7-10) Last Admin: 01/29/20 07:17 Dose: 10 mg Documented by: Nalbuphine HCl (Nubain) 2.5 mg IVPUSH Q3H PRN PRN Reason: Pruritis Stop: 01/31/20 06:24 Propofol (Diprivan 20 Ml) Confirm Administered Dose 200 mg .ROUTE .STK-MED ONE Stop: 01/30/20 06:10 Ropivacaine (Naropin 0.2%) Confirm Administered Dose 20 ml .ROUTE .STK-MED ONE Stop: 01/29/20 12:21 Ropivacaine (Naropin 0.2%) Confirm Administered Dose 20 ml .ROUTE .STK-MED ONE Stop: 01/30/20 05:05 Terbutaline Sulfate (Brethine) 0.25 mg SUBCUT ASDIRECTED PRN PRN Reason: Tacysystole - Interaction Infant Disposition, : [place] in Room with Family Infant Feeding: Breastfed ; Nursed Well Support Person: - Recovery Exam Fundal Tone: Firm Fundal Level: At Umbilicus Fundal Placement: Midline Lochia Amount: Small Lochia Color: Rubra/Red Perineum Description: Intact, Minimal Bruising/Swelling Episiotomy/Laceration: None Bladder Status: Voiding Urinary Elimination: Voided - Exam General: Alert, Oriented, No Acute Distress HEENT: Pupils Equal, Pupils Reactive, EOMI Neck: Supple, Trachea Midline, No JVD Lungs: Clear to Auscultation, Normal Respiratory Effort. No: Crackles, Rales, Rhonchi, Rub Cardiovascular: Regular Rate, Regular Rhythm GI/Abdominal Exam: Normal Bowel Sounds, Soft, Tender. No: Guarding, Rigid Extremities: Normal Inspection, Non-Tender, No Pedal Edema Skin: Warm, Dry, Intact Wound/Incisions: Dressing Dry and Intact Neurological: No New Focal Deficit, Normal Speech, Normal Tone Psy/Mental Status: Alert, Normal Affect, Normal Mood - Problem List Review Problem List Initiated/Reviewed/Updated: Yes - Assessment Assessment:: 30yo s/p 1LTCD for failed IOL, being induced for preeclampsia with severe features - Plan Plan:: 1. Preeclampsia w/ severe features- s/p magnesium for seizure prophylaxis. Monitor BP and for return of symptoms. 2. GDMA1 - will need 2hr GTT . 3. 1LTCD - routine postoperative care. Encourage ambulation today. 4. Encourage . 5. Dispo - possible discharge home today if blood pressures controlled, may require stay until POD#3. <Debbie Hernandez - Last Filed: 02/01/20 10:20> - General Info Subjective Update: Denies preeclampsia symptoms. - Patient Data Vital Signs - Most Recent: Last Vital Signs Temp 36.6 C 02/01/20 08:00 Pulse 76 02/01/20 09:26 Resp 16 02/01/20 08:00 BP 144/78 H 02/01/20 09:26 Pulse Ox 98 02/01/20 08:00 Med Orders - Current: Current Medications Acetaminophen (Tylenol Extra Strength) 1,000 mg PO Q6H PRN PRN Reason: Headache Last Admin: 01/31/20 13:20 Dose: 1,000 mg Documented by: Bisacodyl (Dulcolax) 10 mg RECTAL ONETIME PRN PRN Reason: Constipation Calcium Gluconate (Calcium Gluconate) 1 gm IV ASDIRECTED PRN PRN Reason: respiratory distress Carboprost Tromethamine (Hemabate Ds) 250 mcg IM ASDIRECTED PRN PRN Reason: Post Hemorrhage Diphenhydramine HCl (Benadryl) 25 mg IVPUSH Q6H PRN PRN Reason: Itching or Nausea Docusate Sodium (Colace) 100 mg PO BID [facility] Last Admin: 02/01/20 08:36 Dose: 100 mg Documented by: Emollient Ointment (Lansinoh Hpa) 0 gm TOP ASDIRECTED PRN PRN Reason: Sore Nipples Last Admin: 01/31/20 21:17 Dose: 1 tube Documented by: Oxytocin/Sodium Chloride (Oxytocin 30 Unit/500 Ml-Ns) 30 unit in 500 mls @ 2 mls/hr IV TITRATE [facility]; Protocol Last Titration: 01/30/20 03:48 Dose: 30 munits/min, 30 mls/hr Documented by: Lactated Ringer's (Ringers, Lactated) 1,000 mls @ 150 mls/hr IV ASDIRECTED [facility] Last Infusion: 01/28/20 13:16 Dose: 3 mls/hr Documented by: Oxytocin/Sodium Chloride (Oxytocin 30 Unit/500 Ml-Ns) 30 unit in 500 mls @ 999 mls/hr IV TITRATE DAVE Tranexamic Acid 1,000 mg/ (Sodium Chloride) 110 mls @ 660 mls/hr IV ONETIME PRN PRN Reason: Bleeding Lactated Ringer's (Ringers, Lactated) 1,000 mls @ 5 mls/hr IV ASDIRECTED DAVE Last Infusion: 01/29/20 14:00 Dose: 5 mls/hr Documented by: Lactated Ringer's (Ringers, Lactated) 1,000 mls @ 125 mls/hr IV ASDIRECTED [facility] Oxytocin/Lactated Ringer's (Pitocin In Lr 30 Units/500 Ml) 30 unit in 500 mls @ 125 mls/hr IV TITRATE [facility]; Protocol Tranexamic Acid 1,000 mg/ (Sodium Chloride) 110 mls @ 660 mls/hr IV ONETIME PRN PRN Reason: Bleeding Ibuprofen (Motrin) 800 mg PO Q8H PRN PRN Reason: mild pain or fever Last Admin: 02/01/20 03:39 Dose: 800 mg Documented by: Labetalol HCl (Normodyne) 20 mg IVPUSH Q10M PRN; Protocol PRN Reason: Hypertension Labetalol HCl (Normodyne) 200 mg PO BID DAVE Lidocaine HCl (Xylocaine 1%) 50 ml INJECT ONETIME PRN PRN Reason: Laceration repair Methylergonovine Maleate (Methergine) 0.2 mg IM ASDIRECTED PRN PRN Reason: Post Hemorrhage Methylergonovine Maleate (Methergine) 0.2 mg IM ONETIME PRN PRN Reason: Excessive Vaginal Bleeding Misoprostol (Cytotec) 200 mcg PO ONETIME PRN PRN Reason: Post Hemorrhage Misoprostol (Cytotec) 1,000 mcg RECTAL ONETIME PRN PRN Reason: excessive bleeding Ondansetron HCl (Zofran) 4 mg IVPUSH Q4H PRN PRN Reason: Nausea/Vomiting Ondansetron HCl (Zofran) 4 mg IVPUSH Q4H PRN PRN Reason: Nausea/Vomiting Oxycodone/Acetaminophen (Percocet 325-5 Mg) 1 tab PO ONETIME PRN PRN Reason: Pain (moderate 4-6) Last Admin: 01/31/20 01:18 Dose: 1 tab Documented by: Oxycodone/Acetaminophen (Percocet 325-5 Mg) 1 tab PO Q4H PRN PRN Reason: Pain (moderate 4-6) Last Admin: 02/01/20 07:43 Dose: 1 tab Documented by: Oxycodone/Acetaminophen (Percocet 325-5 Mg) 2 tab PO Q4H PRN PRN Reason: Pain (moderate 4-6) Oxytocin (Pitocin) 10 unit IM ASDIRECTED PRN PRN Reason: Excessive Vaginal Bleeding Sodium Chloride (Saline Flush) 10 ml FLUSH ASDIRECTED PRN PRN Reason: Keep Vein Open Sodium Chloride (Saline Flush) 2.5 ml FLUSH ASDIRECTED PRN PRN Reason: Keep Vein Open Last Admin: 01/29/20 07:17 Dose: 2.5 ml Documented by: Sodium Chloride (Normal Saline) 10 ml IV ASDIRECTED PRN PRN Reason: IV Use Sodium Chloride (Normal Saline) 10 ml IV ASDIRECTED PRN PRN Reason: IV Use Sterile Water (Sterile Water For Irrigation) 1,000 ml IRR ASDIRECTED PRN PRN Reason: delivery Discontinued Medications Acetaminophen (Tylenol Extra Strength) 1,000 mg PO ONETIME ONE Stop: 01/28/20 12:31 Last Admin: 01/28/20 13:11 Dose: 1,000 mg Documented by: Butorphanol Tartrate (Stadol) 1 mg IVPUSH Q1H PRN PRN Reason: Pain Citric Acid/Sodium Citrate (Bicitra Solution) 30 ml PO ONETIME ONE Stop: 01/30/20 05:48 Last Admin: 01/30/20 06:25 Dose: 15 ml Documented by: Citric Acid/Sodium Citrate (Bicitra Solution) Confirm Administered Dose 30 ml .ROUTE .STK-MED ONE Stop: 01/30/20 06:23 Fentanyl (Sublimaze) Confirm Administered Dose 100 mcg .ROUTE .STK-MED ONE Stop: 01/29/20 12:21 Fentanyl (Sublimaze) Confirm Administered Dose 100 mcg .ROUTE .STK-MED ONE Stop: 01/30/20 05:04 Fentanyl (Sublimaze) 50 mcg IVPUSH Q5M PRN PRN Reason: Pain (severe 7-10) Stop: 01/31/20 06:24 Magnesium Sulfate 4 gm/ Premix 100 mls @ 300 mls/hr IV BOLUS ONE Stop: 01/28/20 12:31 Last Admin: 01/28/20 13:45 Dose: 300 mls/hr Documented by: Magnesium Sulfate 2 gm/ Premix 50 mls @ 300 mls/hr IV ONETIME ONE Stop: 01/28/20 12:21 Last Admin: 01/28/20 13:16 Dose: 300 mls/hr Documented by: Magnesium Sulfate (Magnesium Sulfate In Water Premix) 20 gm in 500 mls @ 50 mls/hr IV ASDIRECTED [facility]; Protocol Last Admin: 01/31/20 02:10 Dose: 2 gm/hr, 50 mls/hr Documented by: Ropivacaine (Naropin 0.2%) Confirm Administered Dose 100 mls @ as directed .ROUTE .STK-MED ONE Stop: 01/29/20 12:21 Ropivacaine (Naropin 0.2%) Confirm Administered Dose 100 mls @ as directed .ROUTE .STK-MED ONE Stop: 01/29/20 22:12 Cefazolin Sodium/Dextrose 2 gm (/ Premix) 50 mls @ 100 mls/hr IV ONETIME ONE Stop: 01/30/20 06:17 Acetaminophen (Ofirmev) Confirm Administered Dose 100 mls @ as directed .ROUTE .STK-MED ONE Stop: 01/30/20 05:54 Ketorolac Tromethamine (Toradol) Confirm Administered Dose 30 mg .ROUTE .STK-MED ONE Stop: 01/30/20 08:25 Last Admin: 01/30/20 08:30 Dose: 30 mg Documented by: Ketorolac Tromethamine (Toradol) 30 mg IVPUSH Q6H DAVE Stop: 01/31/20 08:31 Last Admin: 01/31/20 08:54 Dose: 30 mg Documented by: Labetalol HCl (Normodyne) 20 mg IVPUSH ONETIME ONE; Protocol Stop: 01/29/20 19:26 Labetalol HCl (Normodyne) 100 mg PO BID DAVE Last Admin: 02/01/20 08:36 Dose: 100 mg Documented by: Labetalol HCl (Normodyne) 100 mg PO ONETIME ONE Stop: 02/01/20 09:31 Last Admin: 02/01/20 09:26 Dose: 100 mg Documented by: Misoprostol (Cytotec) 25 mcg VAG ONETIME PRN PRN Reason: Cervical Ripening Last Admin: 01/28/20 11:15 Dose: 25 mcg Documented by: Misoprostol (Cytotec) 25 mcg VAG Q4H PRN PRN Reason: Cervical Ripening Last Admin: 01/29/20 05:37 Dose: 25 mcg Documented by: Misoprostol (Cytotec) 25 mcg PO ONETIME ONE Stop: 01/29/20 06:30 Last Admin: 01/29/20 06:38 Dose: 25 mcg Documented by: Morphine Sulfate (Duramorph Pf) Confirm Administered Dose 10 mg .ROUTE .STK-MED ONE Stop: 01/30/20 06:21 Nalbuphine HCl (Nubain) 10 mg IVPUSH Q1H PRN PRN Reason: Pain (severe 7-10) Last Admin: 01/29/20 07:17 Dose: 10 mg Documented by: Nalbuphine HCl (Nubain) 2.5 mg IVPUSH Q3H PRN PRN Reason: Pruritis Stop: 01/31/20 06:24 Propofol (Diprivan 20 Ml) Confirm Administered Dose 200 mg .ROUTE .STK-MED ONE Stop: 01/30/20 06:10 Ropivacaine (Naropin 0.2%) Confirm Administered Dose 20 ml .ROUTE .STK-MED ONE Stop: 01/29/20 12:21 Ropivacaine (Naropin 0.2%) Confirm Administered Dose 20 ml .ROUTE .STK-MED ONE Stop: 01/30/20 05:05 Terbutaline Sulfate (Brethine) 0.25 mg SUBCUT ASDIRECTED PRN PRN Reason: Tacysystole - Problem List & Annotations (1) delivery delivered SNOMED Code(s): 156112731 Code(s): O82 - ENCOUNTER FOR DELIVERY WITHOUT INDICATION Status: Acute Current Visit: Yes (2) Pre-eclampsia, severe, delivered SNOMED Code(s): 723761744, 399490270 Code(s): O14.14 - SEVERE PRE-ECLAMPSIA COMPLICATING CHILDBIRTH Status: Acute Current Visit: Yes - My Orders Last 24 Hours: My Active Orders 02/01/20 21:00 Labetalol [Normodyne] 200 mg PO BID - Plan Plan:: Patient doing well this morning, agree with HPI and plan. Since seeing patient, blood pressures elevated, increase in Labetalol to 200mg BID. Will monitor BP today. Possible D/C home tomorrow if BP controlled.
[2020-02-01] MEDS: Labetalol 100 MG Tab PO SCH (08:36)
[2020-02-01] MEDS: Docusate Sodium 100 MG Cap PO SCH ×2 (08:36→21:15)
[2020-02-01] MEDS ORDERED: Labetalol 100 MG Tab PO ONE (09:30)
[2020-02-01 13:46] LABS: CARBON DIOXIDE,CO2 26.9 mmol/L (21.0-32.0); CHLORIDE,CL 105 mmol/L (98-107); GLUCOSE RANDOM 83 mg/dL (74-106); POTASSIUM,K 3.5 mmol/L (3.5-5.1); SODIUM,NA 142 mmol/L (136-145)
[2020-02-01 13:59] LABS: BLOOD UREA NITROGEN,BUN 13 mg/dL (7.0-18.0)
--- NOTE | 2020-02-01 16:46 | PCM.SN.2 ---
- Free Text/Narrative Note: Notified by RN of intermittent severe-range BP. Patient getting anxious when staff enters room to take BP. Discussed I cannot safely discharge patient to home with severe-range BP, but that we are likely making her BP more elevated by causing anxiety. Will schedule BP q1 hour on machine without interruption by staff. If <160/110, will space out timing. If remain severe-range, may need to increase Labetalol.
[2020-02-01] MEDS ORDERED: Labetalol 100 MG Tab PO SCH (21:00)
[2020-02-02] MEDS: Acetaminophen/oxyCODONE 325-5 MG Tab PO PRN (02:59)
--- NOTE | 2020-02-02 08:08 | PCM.PNPP ---
<Davis Salazar - Last Filed: 02/02/20 08:03> - General Info Date of Service: 02/02/20 Admission Dx/Problem (Free Text): s/p LTCD Subjective Update: Pt feeling well today. Pain and bleeding are minimal. going well. Has resumed normal bowel function. Functional Status: Reports: Pain Controlled - Review of Systems General: Reports: No Symptoms HEENT: Reports: No Symptoms Pulmonary: Reports: No Symptoms Cardiovascular: Reports: No Symptoms Gastrointestinal: Reports: Abdominal Pain. Denies: Constipation, Diarrhea, Nausea, Vomiting Genitourinary: Reports: No Symptoms Musculoskeletal: Reports: No Symptoms Skin: Reports: No Symptoms Neurological: Reports: No Symptoms Psychiatric: Reports: No Symptoms - General Info Date of Service: 02/02/20 - Patient Data Vital Signs - Most Recent: Last Vital Signs Temp 97.7 F 02/02/20 05:00 Pulse 73 02/02/20 06:09 Resp 14 02/02/20 05:00 BP 164/101 H 02/02/20 06:43 Pulse Ox 98 02/02/20 05:00 Weight - Most Recent: 69.4 kg Lab Results - Last 24 Hours: Laboratory Results - last 24 hr 01/28/20 02/01/20 Range/Units 10:00 13:15 Sodium 142 (136-145) mmol/L Potassium 3.5 (3.5-5.1) mmol/L Chloride 105 (98-107) mmol/L Carbon Dioxide 26.9 (21.0-32.0) mmol/L BUN 13 (7.0-18.0) mg/dL Creatinine 0.8 (0.6-1.0) mg/dL Est Cr Clr Drug Dosing 84.29 mL/min Estimated GFR (MDRD) > 60.0 ml/min Glucose 83 (74-106) mg/dL Calcium 8.5 (8.5-10.1) mg/dL Total Bilirubin 0.5 (0.2-1.0) mg/dL AST 29 (15-37) IU/L ALT 80 H (14-63) IU/L Alkaline Phosphatase 153 H (46-116) U/L Total Protein 5.5 L (6.4-8.2) g/dL Albumin 2.2 L (3.4-5.0) g/dL Globulin 3.3 (2.6-4.0) g/dL Albumin/Globulin Ratio 0.7 L (0.9-1.6) RPR Non-Reac (Non-Reac) Med Orders - Current: Current Medications Acetaminophen (Tylenol Extra Strength) 1,000 mg PO Q6H PRN PRN Reason: Headache Last Admin: 01/31/20 13:20 Dose: 1,000 mg Documented by: Bisacodyl (Dulcolax) 10 mg RECTAL ONETIME PRN PRN Reason: Constipation Calcium Gluconate (Calcium Gluconate) 1 gm IV ASDIRECTED PRN PRN Reason: respiratory distress Carboprost Tromethamine (Hemabate Ds) 250 mcg IM ASDIRECTED PRN PRN Reason: Post Hemorrhage Diphenhydramine HCl (Benadryl) 25 mg IVPUSH Q6H PRN PRN Reason: Itching or Nausea Docusate Sodium (Colace) 100 mg PO BID DAVE Last Admin: 02/01/20 21:15 Dose: 100 mg Documented by: Emollient Ointment (Lansinoh Hpa) 0 gm TOP ASDIRECTED PRN PRN Reason: Sore Nipples Last Admin: 01/31/20 21:17 Dose: 1 tube Documented by: Oxytocin/Sodium Chloride (Oxytocin 30 Unit/500 Ml-Ns) 30 unit in 500 mls @ 2 mls/hr IV TITRATE DAVE; Protocol Last Titration: 01/30/20 03:48 Dose: 30 munits/min, 30 mls/hr Documented by: Lactated Ringer's (Ringers, Lactated) 1,000 mls @ 150 mls/hr IV ASDIRECTED DAVE Last Infusion: 01/28/20 13:16 Dose: 3 mls/hr Documented by: Oxytocin/Sodium Chloride (Oxytocin 30 Unit/500 Ml-Ns) 30 unit in 500 mls @ 999 mls/hr IV TITRATE DAVE Tranexamic Acid 1,000 mg/ (Sodium Chloride) 110 mls @ 660 mls/hr IV ONETIME PRN PRN Reason: Bleeding Lactated Ringer's (Ringers, Lactated) 1,000 mls @ 5 mls/hr IV ASDIRECTED DAVE Last Infusion: 01/29/20 14:00 Dose: 5 mls/hr Documented by: Lactated Ringer's (Ringers, Lactated) 1,000 mls @ 125 mls/hr IV ASDIRECTED DAVE Oxytocin/Lactated Ringer's (Pitocin In Lr 30 Units/500 Ml) 30 unit in 500 mls @ 125 mls/hr IV TITRATE [facility]; Protocol Tranexamic Acid 1,000 mg/ (Sodium Chloride) 110 mls @ 660 mls/hr IV ONETIME PRN PRN Reason: Bleeding Ibuprofen (Motrin) 800 mg PO Q8H PRN PRN Reason: mild pain or fever Last Admin: 02/01/20 20:12 Dose: 800 mg Documented by: Labetalol HCl (Normodyne) 20 mg IVPUSH Q10M PRN; Protocol PRN Reason: Hypertension Labetalol HCl (Normodyne) 200 mg PO BID DAEV Last Admin: 02/01/20 21:16 Dose: 200 mg Documented by: Lidocaine HCl (Xylocaine 1%) 50 ml INJECT ONETIME PRN PRN Reason: Laceration repair Methylergonovine Maleate (Methergine) 0.2 mg IM ASDIRECTED PRN PRN Reason: Post Hemorrhage Methylergonovine Maleate (Methergine) 0.2 mg IM ONETIME PRN PRN Reason: Excessive Vaginal Bleeding Misoprostol (Cytotec) 200 mcg PO ONETIME PRN PRN Reason: Post Hemorrhage Misoprostol (Cytotec) 1,000 mcg RECTAL ONETIME PRN PRN Reason: excessive bleeding Ondansetron HCl (Zofran) 4 mg IVPUSH Q4H PRN PRN Reason: Nausea/Vomiting Ondansetron HCl (Zofran) 4 mg IVPUSH Q4H PRN PRN Reason: Nausea/Vomiting Oxycodone/Acetaminophen (Percocet 325-5 Mg) 1 tab PO ONETIME PRN PRN Reason: Pain (moderate 4-6) Last Admin: 01/31/20 01:18 Dose: 1 tab Documented by: Oxycodone/Acetaminophen (Percocet 325-5 Mg) 1 tab PO Q4H PRN PRN Reason: Pain (moderate 4-6) Last Admin: 02/02/20 02:59 Dose: 1 tab Documented by: Oxycodone/Acetaminophen (Percocet 325-5 Mg) 2 tab PO Q4H PRN PRN Reason: Pain (moderate 4-6) Oxytocin (Pitocin) 10 unit IM ASDIRECTED PRN PRN Reason: Excessive Vaginal Bleeding Sodium Chloride (Saline Flush) 10 ml FLUSH ASDIRECTED PRN PRN Reason: Keep Vein Open Sodium Chloride (Saline Flush) 2.5 ml FLUSH ASDIRECTED PRN PRN Reason: Keep Vein Open Last Admin: 01/29/20 07:17 Dose: 2.5 ml Documented by: Sodium Chloride (Normal Saline) 10 ml IV ASDIRECTED PRN PRN Reason: IV Use Sodium Chloride (Normal Saline) 10 ml IV ASDIRECTED PRN PRN Reason: IV Use Sterile Water (Sterile Water For Irrigation) 1,000 ml IRR ASDIRECTED PRN PRN Reason: delivery Discontinued Medications Acetaminophen (Tylenol Extra Strength) 1,000 mg PO ONETIME ONE Stop: 01/28/20 12:31 Last Admin: 01/28/20 13:11 Dose: 1,000 mg Documented by: Butorphanol Tartrate (Stadol) 1 mg IVPUSH Q1H PRN PRN Reason: Pain Citric Acid/Sodium Citrate (Bicitra Solution) 30 ml PO ONETIME ONE Stop: 01/30/20 05:48 Last Admin: 01/30/20 06:25 Dose: 15 ml Documented by: Citric Acid/Sodium Citrate (Bicitra Solution) Confirm Administered Dose 30 ml .ROUTE .STK-MED ONE Stop: 01/30/20 06:23 Fentanyl (Sublimaze) Confirm Administered Dose 100 mcg .ROUTE .STK-MED ONE Stop: 01/29/20 12:21 Fentanyl (Sublimaze) Confirm Administered Dose 100 mcg .ROUTE .STK-MED ONE Stop: 01/30/20 05:04 Fentanyl (Sublimaze) 50 mcg IVPUSH Q5M PRN PRN Reason: Pain (severe 7-10) Stop: 01/31/20 06:24 Magnesium Sulfate 4 gm/ Premix 100 mls @ 300 mls/hr IV BOLUS ONE Stop: 01/28/20 12:31 Last Admin: 01/28/20 13:45 Dose: 300 mls/hr Documented by: Magnesium Sulfate 2 gm/ Premix 50 mls @ 300 mls/hr IV ONETIME ONE Stop: 01/28/20 12:21 Last Admin: 01/28/20 13:16 Dose: 300 mls/hr Documented by: Magnesium Sulfate (Magnesium Sulfate In Water Premix) 20 gm in 500 mls @ 50 mls/hr IV ASDIRECTED [facility]; Protocol Last Admin: 01/31/20 02:10 Dose: 2 gm/hr, 50 mls/hr Documented by: Ropivacaine (Naropin 0.2%) Confirm Administered Dose 100 mls @ as directed .ROUTE .STK-MED ONE Stop: 01/29/20 12:21 Ropivacaine (Naropin 0.2%) Confirm Administered Dose 100 mls @ as directed .ROUTE .STK-MED ONE Stop: 01/29/20 22:12 Cefazolin Sodium/Dextrose 2 gm (/ Premix) 50 mls @ 100 mls/hr IV ONETIME ONE Stop: 01/30/20 06:17 Acetaminophen (Ofirmev) Confirm Administered Dose 100 mls @ as directed .ROUTE .STK-MED ONE Stop: 01/30/20 05:54 Ketorolac Tromethamine (Toradol) Confirm Administered Dose 30 mg .ROUTE .STK-MED ONE Stop: 01/30/20 08:25 Last Admin: 01/30/20 08:30 Dose: 30 mg Documented by: Ketorolac Tromethamine (Toradol) 30 mg IVPUSH Q6H [facility] Stop: 01/31/20 08:31 Last Admin: 01/31/20 08:54 Dose: 30 mg Documented by: Labetalol HCl (Normodyne) 20 mg IVPUSH ONETIME ONE; Protocol Stop: 01/29/20 19:26 Labetalol HCl (Normodyne) 100 mg PO BID [facility] Last Admin: 02/01/20 08:36 Dose: 100 mg Documented by: Labetalol HCl (Normodyne) 100 mg PO ONETIME ONE Stop: 02/01/20 09:31 Last Admin: 02/01/20 09:26 Dose: 100 mg Documented by: Misoprostol (Cytotec) 25 mcg VAG ONETIME PRN PRN Reason: Cervical Ripening Last Admin: 01/28/20 11:15 Dose: 25 mcg Documented by: Misoprostol (Cytotec) 25 mcg VAG Q4H PRN PRN Reason: Cervical Ripening Last Admin: 01/29/20 05:37 Dose: 25 mcg Documented by: Misoprostol (Cytotec) 25 mcg PO ONETIME ONE Stop: 01/29/20 06:30 Last Admin: 01/29/20 06:38 Dose: 25 mcg Documented by: Morphine Sulfate (Duramorph Pf) Confirm Administered Dose 10 mg .ROUTE .STK-MED ONE Stop: 01/30/20 06:21 Nalbuphine HCl (Nubain) 10 mg IVPUSH Q1H PRN PRN Reason: Pain (severe 7-10) Last Admin: 01/29/20 07:17 Dose: 10 mg Documented by: Nalbuphine HCl (Nubain) 2.5 mg IVPUSH Q3H PRN PRN Reason: Pruritis Stop: 01/31/20 06:24 Propofol (Diprivan 20 Ml) Confirm Administered Dose 200 mg .ROUTE .STK-MED ONE Stop: 01/30/20 06:10 Ropivacaine (Naropin 0.2%) Confirm Administered Dose 20 ml .ROUTE .STK-MED ONE Stop: 01/29/20 12:21 Ropivacaine (Naropin 0.2%) Confirm Administered Dose 20 ml .ROUTE .STK-MED ONE Stop: 01/30/20 05:05 Terbutaline Sulfate (Brethine) 0.25 mg SUBCUT ASDIRECTED PRN PRN Reason: Tacysystole - Infant Interaction Disposition, : [place] in Room with Family Feeding: Breastfed Infant; Nursed Well Support Person: - Recovery Exam Fundal Tone: Firm Fundal Level: At Umbilicus Fundal Placement: Midline Lochia Amount: Scant Lochia Color: Rubra/Red Perineum Description: Intact, Minimal Bruising/Swelling Episiotomy/Laceration: None Bladder Status: Nonpalpable, Voiding Urinary Elimination: Voided - Exam General: Alert, Oriented HEENT: Pupils Equal Neck: Supple Lungs: Clear to Auscultation, Normal Respiratory Effort. No: Crackles, Rales, Rhonchi, Wheezing Cardiovascular: Regular Rate, Regular Rhythm, Murmurs (systolic murmur) GI/Abdominal Exam: Normal Bowel Sounds, Soft, No Distention, Tender Extremities: Normal Inspection, Non-Tender Skin: Warm, Dry, Intact Wound/Incisions: Dressing Dry and Intact Neurological: No New Focal Deficit Psy/Mental Status: Alert, Normal Affect, Normal Mood - Problem List & Annotations (1) delivery delivered SNOMED Code(s): 737414644 Code(s): O82 - ENCOUNTER FOR DELIVERY WITHOUT INDICATION Status: Acute Current Visit: Yes (2) Pre-eclampsia, severe, delivered SNOMED Code(s): 603308102, 216047631 Code(s): O14.14 - SEVERE PRE-ECLAMPSIA COMPLICATING CHILDBIRTH Status: Acute Current Visit: Yes - Problem List Review Problem List Initiated/Reviewed/Updated: Yes - Assessment Assessment:: 30yo s/p 1LTCD for failed IOL, being induced for preeclampsia with severe features. POD#3 - Plan Plan:: Patient doing well this morning. Resumed normal bowel function. going well. D/C Labetalol, start Nifedipine 30mg Monitor BP Routine care <Debbie Hernandez - Last Filed: 02/02/20 08:29> - Patient Data Vital Signs - Most Recent: Last Vital Signs Temp 36.5 C 02/02/20 05:00 Pulse 73 02/02/20 06:09 Resp 14 02/02/20 05:00 BP 164/101 H 02/02/20 06:43 Pulse Ox 98 02/02/20 05:00 Lab Results - Last 24 Hours: Laboratory Results - last 24 hr 01/28/20 02/01/20 Range/Units 10:00 13:15 Sodium 142 (136-145) mmol/L Potassium 3.5 (3.5-5.1) mmol/L Chloride 105 (98-107) mmol/L Carbon Dioxide 26.9 (21.0-32.0) mmol/L BUN 13 (7.0-18.0) mg/dL Creatinine 0.8 (0.6-1.0) mg/dL Est Cr Clr Drug Dosing 84.29 mL/min Estimated GFR (MDRD) > 60.0 ml/min Glucose 83 (74-106) mg/dL Calcium 8.5 (8.5-10.1) mg/dL Total Bilirubin 0.5 (0.2-1.0) mg/dL AST 29 (15-37) IU/L ALT 80 H (14-63) IU/L Alkaline Phosphatase 153 H (46-116) U/L Total Protein 5.5 L (6.4-8.2) g/dL Albumin 2.2 L (3.4-5.0) g/dL Globulin 3.3 (2.6-4.0) g/dL Albumin/Globulin Ratio 0.7 L (0.9-1.6) RPR Non-Reac (Non-Reac) Med Orders - Current: Current Medications Acetaminophen (Tylenol Extra Strength) 1,000 mg PO Q6H PRN PRN Reason: Headache Last Admin: 01/31/20 13:20 Dose: 1,000 mg Documented by: Bisacodyl (Dulcolax) 10 mg RECTAL ONETIME PRN PRN Reason: Constipation Calcium Gluconate (Calcium Gluconate) 1 gm IV ASDIRECTED PRN PRN Reason: respiratory distress Carboprost Tromethamine (Hemabate Ds) 250 mcg IM ASDIRECTED PRN PRN Reason: Post Hemorrhage Diphenhydramine HCl (Benadryl) 25 mg IVPUSH Q6H PRN PRN Reason: Itching or Nausea Docusate Sodium (Colace) 100 mg PO BID DAVE Last Admin: 02/01/20 21:15 Dose: 100 mg Documented by: Emollient Ointment (Lansinoh Hpa) 0 gm TOP ASDIRECTED PRN PRN Reason: Sore Nipples Last Admin: 01/31/20 21:17 Dose: 1 tube Documented by: Oxytocin/Sodium Chloride (Oxytocin 30 Unit/500 Ml-Ns) 30 unit in 500 mls @ 2 mls/hr IV TITRATE [facility]; Protocol Last Titration: 01/30/20 03:48 Dose: 30 munits/min, 30 mls/hr Documented by: Lactated Ringer's (Ringers, Lactated) 1,000 mls @ 150 mls/hr IV ASDIRECTED DAVE Last Infusion: 01/28/20 13:16 Dose: 3 mls/hr Documented by: Oxytocin/Sodium Chloride (Oxytocin 30 Unit/500 Ml-Ns) 30 unit in 500 mls @ 999 mls/hr IV TITRATE DAVE Tranexamic Acid 1,000 mg/ (Sodium Chloride) 110 mls @ 660 mls/hr IV ONETIME PRN PRN Reason: Bleeding Lactated Ringer's (Ringers, Lactated) 1,000 mls @ 5 mls/hr IV ASDIRECTED DAVE Last Infusion: 01/29/20 14:00 Dose: 5 mls/hr Documented by: Lactated Ringer's (Ringers, Lactated) 1,000 mls @ 125 mls/hr IV ASDIRECTED D[facility] Oxytocin/Lactated Ringer's (Pitocin In Lr 30 Units/500 Ml) 30 unit in 500 mls @ 125 mls/hr IV TITRATE [facility]; Protocol Tranexamic Acid 1,000 mg/ (Sodium Chloride) 110 mls @ 660 mls/hr IV ONETIME PRN PRN Reason: Bleeding Ibuprofen (Motrin) 800 mg PO Q8H PRN PRN Reason: mild pain or fever Last Admin: 02/01/20 20:12 Dose: 800 mg Documented by: Labetalol HCl (Normodyne) 20 mg IVPUSH Q10M PRN; Protocol PRN Reason: Hypertension Lidocaine HCl (Xylocaine 1%) 50 ml INJECT ONETIME PRN PRN Reason: Laceration repair Methylergonovine Maleate (Methergine) 0.2 mg IM ASDIRECTED PRN PRN Reason: Post Hemorrhage Methylergonovine Maleate (Methergine) 0.2 mg IM ONETIME PRN PRN Reason: Excessive Vaginal Bleeding Misoprostol (Cytotec) 200 mcg PO ONETIME PRN PRN Reason: Post Hemorrhage Misoprostol (Cytotec) 1,000 mcg RECTAL ONETIME PRN PRN Reason: excessive bleeding Nifedipine (Procardia Xl) 30 mg PO DAILY DAVE Ondansetron HCl (Zofran) 4 mg IVPUSH Q4H PRN PRN Reason: Nausea/Vomiting Ondansetron HCl (Zofran) 4 mg IVPUSH Q4H PRN PRN Reason: Nausea/Vomiting Oxycodone/Acetaminophen (Percocet 325-5 Mg) 1 tab PO ONETIME PRN PRN Reason: Pain (moderate 4-6) Last Admin: 01/31/20 01:18 Dose: 1 tab Documented by: Oxycodone/Acetaminophen (Percocet 325-5 Mg) 1 tab PO Q4H PRN PRN Reason: Pain (moderate 4-6) Last Admin: 02/02/20 02:59 Dose: 1 tab Documented by: Oxycodone/Acetaminophen (Percocet 325-5 Mg) 2 tab PO Q4H PRN PRN Reason: Pain (moderate 4-6) Oxytocin (Pitocin) 10 unit IM ASDIRECTED PRN PRN Reason: Excessive Vaginal Bleeding Sodium Chloride (Saline Flush) 10 ml FLUSH ASDIRECTED PRN PRN Reason: Keep Vein Open Sodium Chloride (Saline Flush) 2.5 ml FLUSH ASDIRECTED PRN PRN Reason: Keep Vein Open Last Admin: 01/29/20 07:17 Dose: 2.5 ml Documented by: Sodium Chloride (Normal Saline) 10 ml IV ASDIRECTED PRN PRN Reason: IV Use Sodium Chloride (Normal Saline) 10 ml IV ASDIRECTED PRN PRN Reason: IV Use Sterile Water (Sterile Water For Irrigation) 1,000 ml IRR ASDIRECTED PRN PRN Reason: delivery Discontinued Medications Acetaminophen (Tylenol Extra Strength) 1,000 mg PO ONETIME ONE Stop: 01/28/20 12:31 Last Admin: 01/28/20 13:11 Dose: 1,000 mg Documented by: Butorphanol Tartrate (Stadol) 1 mg IVPUSH Q1H PRN PRN Reason: Pain Citric Acid/Sodium Citrate (Bicitra Solution) 30 ml PO ONETIME ONE Stop: 01/30/20 05:48 Last Admin: 01/30/20 06:25 Dose: 15 ml Documented by: Citric Acid/Sodium Citrate (Bicitra Solution) Confirm Administered Dose 30 ml .ROUTE .STK-MED ONE Stop: 01/30/20 06:23 Fentanyl (Sublimaze) Confirm Administered Dose 100 mcg .ROUTE .STK-MED ONE Stop: 01/29/20 12:21 Fentanyl (Sublimaze) Confirm Administered Dose 100 mcg .ROUTE .STK-MED ONE Stop: 01/30/20 05:04 Fentanyl (Sublimaze) 50 mcg IVPUSH Q5M PRN PRN Reason: Pain (severe 7-10) Stop: 01/31/20 06:24 Magnesium Sulfate 4 gm/ Premix 100 mls @ 300 mls/hr IV BOLUS ONE Stop: 01/28/20 12:31 Last Admin: 01/28/20 13:45 Dose: 300 mls/hr Documented by: Magnesium Sulfate 2 gm/ Premix 50 mls @ 300 mls/hr IV ONETIME ONE Stop: 01/28/20 12:21 Last Admin: 01/28/20 13:16 Dose: 300 mls/hr Documented by: Magnesium Sulfate (Magnesium Sulfate In Water Premix) 20 gm in 500 mls @ 50 mls/hr IV ASDIRECTED [facility]; Protocol Last Admin: 01/31/20 02:10 Dose: 2 gm/hr, 50 mls/hr Documented by: Ropivacaine (Naropin 0.2%) Confirm Administered Dose 100 mls @ as directed .ROUTE .STK-MED ONE Stop: 01/29/20 12:21 Ropivacaine (Naropin 0.2%) Confirm Administered Dose 100 mls @ as directed .ROUTE .STK-MED ONE Stop: 01/29/20 22:12 Cefazolin Sodium/Dextrose 2 gm (/ Premix) 50 mls @ 100 mls/hr IV ONETIME ONE Stop: 01/30/20 06:17 Acetaminophen (Ofirmev) Confirm Administered Dose 100 mls @ as directed .ROUTE .STK-MED ONE Stop: 01/30/20 05:54 Ketorolac Tromethamine (Toradol) Confirm Administered Dose 30 mg .ROUTE .STK-MED ONE Stop: 01/30/20 08:25 Last Admin: 01/30/20 08:30 Dose: 30 mg Documented by: Ketorolac Tromethamine (Toradol) 30 mg IVPUSH Q6H [facility] Stop: 01/31/20 08:31 Last Admin: 01/31/20 08:54 Dose: 30 mg Documented by: Labetalol HCl (Normodyne) 20 mg IVPUSH ONETIME ONE; Protocol Stop: 01/29/20 19:26 Labetalol HCl (Normodyne) 100 mg PO BID [facility] Last Admin: 02/01/20 08:36 Dose: 100 mg Documented by: Labetalol HCl (Normodyne) 100 mg PO ONETIME ONE Stop: 02/01/20 09:31 Last Admin: 02/01/20 09:26 Dose: 100 mg Documented by: Labetalol HCl (Normodyne) 200 mg PO BID [facility] Last Admin: 02/01/20 21:16 Dose: 200 mg Documented by: Misoprostol (Cytotec) 25 mcg VAG ONETIME PRN PRN Reason: Cervical Ripening Last Admin: 01/28/20 11:15 Dose: 25 mcg Documented by: Misoprostol (Cytotec) 25 mcg VAG Q4H PRN PRN Reason: Cervical Ripening Last Admin: 01/29/20 05:37 Dose: 25 mcg Documented by: Misoprostol (Cytotec) 25 mcg PO ONETIME ONE Stop: 01/29/20 06:30 Last Admin: 01/29/20 06:38 Dose: 25 mcg Documented by: Morphine Sulfate (Duramorph Pf) Confirm Administered Dose 10 mg .ROUTE .STK-MED ONE Stop: 01/30/20 06:21 Nalbuphine HCl (Nubain) 10 mg IVPUSH Q1H PRN PRN Reason: Pain (severe 7-10) Last Admin: 01/29/20 07:17 Dose: 10 mg Documented by: Nalbuphine HCl (Nubain) 2.5 mg IVPUSH Q3H PRN PRN Reason: Pruritis Stop: 01/31/20 06:24 Propofol (Diprivan 20 Ml) Confirm Administered Dose 200 mg .ROUTE .STK-MED ONE Stop: 01/30/20 06:10 Ropivacaine (Naropin 0.2%) Confirm Administered Dose 20 ml .ROUTE .STK-MED ONE Stop: 01/29/20 12:21 Ropivacaine (Naropin 0.2%) Confirm Administered Dose 20 ml .ROUTE .STK-MED ONE Stop: 01/30/20 05:05 Terbutaline Sulfate (Brethine) 0.25 mg SUBCUT ASDIRECTED PRN PRN Reason: Tacysystole - Problem List & Annotations (1) delivery delivered SNOMED Code(s): 553442519 Code(s): O82 - ENCOUNTER FOR DELIVERY WITHOUT INDICATION Status: Acute Current Visit: Yes (2) Pre-eclampsia, severe, delivered SNOMED Code(s): 084493833, 329414404 Code(s): O14.14 - SEVERE PRE-ECLAMPSIA COMPLICATING CHILDBIRTH Status: Acute Current Visit: Yes - My Orders Last 24 Hours: My Active Orders 02/02/20 09:00 NIFEdipine [Procardia XL] 30 mg PO DAILY - Plan Plan:: Baby with elevated bili today, will be under UV lights. Continued elevated BP with Labetalol, will switch to Procardia XL 30mg daily, potentially BID if BP begins to increase this evening. Monitor BP closely today, patient asymptomatic.
[2020-02-02] MEDS ORDERED: NIFEdipine 30 MG Tab.ER PO SCH (09:00)
[2020-02-02] MEDS: Docusate Sodium 100 MG Cap PO SCH ×2 (09:15→21:02)
[2020-02-02] MEDS: Ibuprofen 800 MG Tab PO PRN ×2 (09:17→18:52)
--- NOTE | 2020-02-02 16:50 | PCM.SN.2 ---
- Free Text/Narrative Note: Patient tolerating Nifedipine XL well. Blood pressures have been much improved today. If infant cleared tonight by space systems operations craftsman and BP remains <160/110, will discharge home this evening. Reviewed discharge precautions.
--- NOTE | 2020-02-02 20:22 | PCM.SN.2 ---
- Free Text/Narrative Note: Increase to Nifedipine XL 30mg BID. Infant staying under phototherapy overnight. Hold discharge.
[2020-02-02] MEDS: NIFEdipine 30 MG Tab.ER PO SCH (21:02)
[2020-02-03] MEDS: Ibuprofen 800 MG Tab PO PRN ×2 (04:07→12:13)
--- NOTE | 2020-02-03 08:11 | PCM.PNPP ---
- General Info Date of Service: 02/03/20 Subjective Update: Denies preeclampsia symptoms. Functional Status: Reports: Pain Controlled, Tolerating Diet, Ambulating, Urinating - Review of Systems General: Reports: No Symptoms HEENT: Reports: No Symptoms Pulmonary: Reports: No Symptoms Cardiovascular: Reports: No Symptoms Gastrointestinal: Reports: No Symptoms Genitourinary: Reports: No Symptoms Musculoskeletal: Reports: No Symptoms Skin: Reports: No Symptoms Neurological: Reports: No Symptoms Psychiatric: Reports: No Symptoms - Patient Data Vital Signs - Most Recent: Last Vital Signs Temp 36.6 C 02/03/20 06:00 Pulse 90 02/03/20 06:00 Resp 15 02/03/20 06:00 BP 149/91 H 02/03/20 06:00 Pulse Ox 99 02/03/20 06:00 Weight - Most Recent: 69.4 kg I&O - Last 24 Hours: Intake & Output 02/02/20 02/03/20 02/03/20 22:59 06:59 14:59 Intake Total 550 Balance 550 Med Orders - Current: Current Medications Acetaminophen (Tylenol Extra Strength) 1,000 mg PO Q6H PRN PRN Reason: Headache Last Admin: 01/31/20 13:20 Dose: 1,000 mg Documented by: Bisacodyl (Dulcolax) 10 mg RECTAL ONETIME PRN PRN Reason: Constipation Calcium Gluconate (Calcium Gluconate) 1 gm IV ASDIRECTED PRN PRN Reason: respiratory distress Carboprost Tromethamine (Hemabate Ds) 250 mcg IM ASDIRECTED PRN PRN Reason: Post Hemorrhage Diphenhydramine HCl (Benadryl) 25 mg IVPUSH Q6H PRN PRN Reason: Itching or Nausea Docusate Sodium (Colace) 100 mg PO BID DAVE Last Admin: 02/02/20 21:02 Dose: 100 mg Documented by: Emollient Ointment (Lansinoh Hpa) 0 gm TOP ASDIRECTED PRN PRN Reason: Sore Nipples Last Admin: 01/31/20 21:17 Dose: 1 tube Documented by: Oxytocin/Sodium Chloride (Oxytocin 30 Unit/500 Ml-Ns) 30 unit in 500 mls @ 2 mls/hr IV TITRATE DAVE; Protocol Last Titration: 01/30/20 03:48 Dose: 30 munits/min, 30 mls/hr Documented by: Lactated Ringer's (Ringers, Lactated) 1,000 mls @ 150 mls/hr IV ASDIRECTED [facility] Last Infusion: 01/28/20 13:16 Dose: 3 mls/hr Documented by: Oxytocin/Sodium Chloride (Oxytocin 30 Unit/500 Ml-Ns) 30 unit in 500 mls @ 999 mls/hr IV TITRATE [facility] Tranexamic Acid 1,000 mg/ (Sodium Chloride) 110 mls @ 660 mls/hr IV ONETIME PRN PRN Reason: Bleeding Lactated Ringer's (Ringers, Lactated) 1,000 mls @ 5 mls/hr IV ASDIRECTED DAVE Last Infusion: 01/29/20 14:00 Dose: 5 mls/hr Documented by: Lactated Ringer's (Ringers, Lactated) 1,000 mls @ 125 mls/hr IV ASDIRECTED DAVE Oxytocin/Lactated Ringer's (Pitocin In Lr 30 Units/500 Ml) 30 unit in 500 mls @ 125 mls/hr IV TITRATE [facility]; Protocol Tranexamic Acid 1,000 mg/ (Sodium Chloride) 110 mls @ 660 mls/hr IV ONETIME PRN PRN Reason: Bleeding Ibuprofen (Motrin) 800 mg PO Q8H PRN PRN Reason: mild pain or fever Last Admin: 02/03/20 04:07 Dose: 800 mg Documented by: Labetalol HCl (Normodyne) 20 mg IVPUSH Q10M PRN; Protocol PRN Reason: Hypertension Lidocaine HCl (Xylocaine 1%) 50 ml INJECT ONETIME PRN PRN Reason: Laceration repair Methylergonovine Maleate (Methergine) 0.2 mg IM ASDIRECTED PRN PRN Reason: Post Hemorrhage Methylergonovine Maleate (Methergine) 0.2 mg IM ONETIME PRN PRN Reason: Excessive Vaginal Bleeding Misoprostol (Cytotec) 200 mcg PO ONETIME PRN PRN Reason: Post Hemorrhage Misoprostol (Cytotec) 1,000 mcg RECTAL ONETIME PRN PRN Reason: excessive bleeding Nifedipine (Procardia Xl) 30 mg PO BID [facility] Last Admin: 02/02/20 21:02 Dose: 30 mg Documented by: Ondansetron HCl (Zofran) 4 mg IVPUSH Q4H PRN PRN Reason: Nausea/Vomiting Ondansetron HCl (Zofran) 4 mg IVPUSH Q4H PRN PRN Reason: Nausea/Vomiting Oxycodone/Acetaminophen (Percocet 325-5 Mg) 1 tab PO ONETIME PRN PRN Reason: Pain (moderate 4-6) Last Admin: 01/31/20 01:18 Dose: 1 tab Documented by: Oxycodone/Acetaminophen (Percocet 325-5 Mg) 1 tab PO Q4H PRN PRN Reason: Pain (moderate 4-6) Last Admin: 02/02/20 02:59 Dose: 1 tab Documented by: Oxycodone/Acetaminophen (Percocet 325-5 Mg) 2 tab PO Q4H PRN PRN Reason: Pain (moderate 4-6) Oxytocin (Pitocin) 10 unit IM ASDIRECTED PRN PRN Reason: Excessive Vaginal Bleeding Sodium Chloride (Saline Flush) 10 ml FLUSH ASDIRECTED PRN PRN Reason: Keep Vein Open Sodium Chloride (Saline Flush) 2.5 ml FLUSH ASDIRECTED PRN PRN Reason: Keep Vein Open Last Admin: 01/29/20 07:17 Dose: 2.5 ml Documented by: Sodium Chloride (Normal Saline) 10 ml IV ASDIRECTED PRN PRN Reason: IV Use Sodium Chloride (Normal Saline) 10 ml IV ASDIRECTED PRN PRN Reason: IV Use Sterile Water (Sterile Water For Irrigation) 1,000 ml IRR ASDIRECTED PRN PRN Reason: delivery Discontinued Medications Acetaminophen (Tylenol Extra Strength) 1,000 mg PO ONETIME ONE Stop: 01/28/20 12:31 Last Admin: 01/28/20 13:11 Dose: 1,000 mg Documented by: Butorphanol Tartrate (Stadol) 1 mg IVPUSH Q1H PRN PRN Reason: Pain Citric Acid/Sodium Citrate (Bicitra Solution) 30 ml PO ONETIME ONE Stop: 01/30/20 05:48 Last Admin: 01/30/20 06:25 Dose: 15 ml Documented by: Citric Acid/Sodium Citrate (Bicitra Solution) Confirm Administered Dose 30 ml .ROUTE .STK-MED ONE Stop: 01/30/20 06:23 Fentanyl (Sublimaze) Confirm Administered Dose 100 mcg .ROUTE .STK-MED ONE Stop: 01/29/20 12:21 Fentanyl (Sublimaze) Confirm Administered Dose 100 mcg .ROUTE .STK-MED ONE Stop: 01/30/20 05:04 Fentanyl (Sublimaze) 50 mcg IVPUSH Q5M PRN PRN Reason: Pain (severe 7-10) Stop: 01/31/20 06:24 Magnesium Sulfate 4 gm/ Premix 100 mls @ 300 mls/hr IV BOLUS ONE Stop: 01/28/20 12:31 Last Admin: 01/28/20 13:45 Dose: 300 mls/hr Documented by: Magnesium Sulfate 2 gm/ Premix 50 mls @ 300 mls/hr IV ONETIME ONE Stop: 01/28/20 12:21 Last Admin: 01/28/20 13:16 Dose: 300 mls/hr Documented by: Magnesium Sulfate (Magnesium Sulfate In Water Premix) 20 gm in 500 mls @ 50 mls/hr IV ASDIRECTED [facility]; Protocol Last Admin: 01/31/20 02:10 Dose: 2 gm/hr, 50 mls/hr Documented by: Ropivacaine (Naropin 0.2%) Confirm Administered Dose 100 mls @ as directed .ROUTE .STK-MED ONE Stop: 01/29/20 12:21 Ropivacaine (Naropin 0.2%) Confirm Administered Dose 100 mls @ as directed .ROUTE .STK-MED ONE Stop: 01/29/20 22:12 Cefazolin Sodium/Dextrose 2 gm (/ Premix) 50 mls @ 100 mls/hr IV ONETIME ONE Stop: 01/30/20 06:17 Acetaminophen (Ofirmev) Confirm Administered Dose 100 mls @ as directed .ROUTE .STK-MED ONE Stop: 01/30/20 05:54 Ketorolac Tromethamine (Toradol) Confirm Administered Dose 30 mg .ROUTE .STK-MED ONE Stop: 01/30/20 08:25 Last Admin: 01/30/20 08:30 Dose: 30 mg Documented by: Ketorolac Tromethamine (Toradol) 30 mg IVPUSH Q6H [facility] Stop: 01/31/20 08:31 Last Admin: 01/31/20 08:54 Dose: 30 mg Documented by: Labetalol HCl (Normodyne) 20 mg IVPUSH ONETIME ONE; Protocol Stop: 01/29/20 19:26 Labetalol HCl (Normodyne) 100 mg PO BID [facility] Last Admin: 02/01/20 08:36 Dose: 100 mg Documented by: Labetalol HCl (Normodyne) 100 mg PO ONETIME ONE Stop: 02/01/20 09:31 Last Admin: 02/01/20 09:26 Dose: 100 mg Documented by: Labetalol HCl (Normodyne) 200 mg PO BID [facility] Last Admin: 02/01/20 21:16 Dose: 200 mg Documented by: Misoprostol (Cytotec) 25 mcg VAG ONETIME PRN PRN Reason: Cervical Ripening Last Admin: 01/28/20 11:15 Dose: 25 mcg Documented by: Misoprostol (Cytotec) 25 mcg VAG Q4H PRN PRN Reason: Cervical Ripening Last Admin: 01/29/20 05:37 Dose: 25 mcg Documented by: Misoprostol (Cytotec) 25 mcg PO ONETIME ONE Stop: 01/29/20 06:30 Last Admin: 01/29/20 06:38 Dose: 25 mcg Documented by: Morphine Sulfate (Duramorph Pf) Confirm Administered Dose 10 mg .ROUTE .STK-MED ONE Stop: 01/30/20 06:21 Nalbuphine HCl (Nubain) 10 mg IVPUSH Q1H PRN PRN Reason: Pain (severe 7-10) Last Admin: 01/29/20 07:17 Dose: 10 mg Documented by: Nalbuphine HCl (Nubain) 2.5 mg IVPUSH Q3H PRN PRN Reason: Pruritis Stop: 01/31/20 06:24 Nifedipine (Procardia Xl) 30 mg PO DAILY [facility] Last Admin: 02/02/20 09:16 Dose: 30 mg Documented by: Propofol (Diprivan 20 Ml) Confirm Administered Dose 200 mg .ROUTE .STK-MED ONE Stop: 01/30/20 06:10 Ropivacaine (Naropin 0.2%) Confirm Administered Dose 20 ml .ROUTE .STK-MED ONE Stop: 01/29/20 12:21 Ropivacaine (Naropin 0.2%) Confirm Administered Dose 20 ml .ROUTE .STK-MED ONE Stop: 01/30/20 05:05 Terbutaline Sulfate (Brethine) 0.25 mg SUBCUT ASDIRECTED PRN PRN Reason: Tacysystole - Interaction Infant Disposition, : in Room with Family Infant Feeding: Breastfed ; Nursed Well Support Person: - Recovery Exam Fundal Tone: Firm Fundal Level: 2 Fingerbreadths Below Umbilicus Fundal Placement: Midline Lochia Amount: Scant Lochia Color: Rubra/Red Perineum Description: Intact, Minimal Bruising/Swelling Episiotomy/Laceration: None Bladder Status: Voiding Urinary Elimination: Voided - Exam General: Alert, Oriented Neck: Supple Lungs: Normal Respiratory Effort GI/Abdominal Exam: Soft, Non-Tender, No Distention Extremities: Non-Tender, No Pedal Edema Skin: Warm, Dry, Intact Wound/Incisions: Healing Well Neurological: No New Focal Deficit Psy/Mental Status: Alert, Normal Affect, Normal Mood - Problem List & Annotations (1) delivery delivered SNOMED Code(s): 245617958 Code(s): O82 - ENCOUNTER FOR DELIVERY WITHOUT INDICATION Status: Acute Current Visit: Yes (2) Pre-eclampsia, severe, delivered SNOMED Code(s): 150223073, 030251002 Code(s): O14.14 - SEVERE PRE-ECLAMPSIA COMPLICATING CHILDBIRTH Status: Acute Current Visit: Yes - Problem List Review Problem List Initiated/Reviewed/Updated: Yes - My Orders Last 24 Hours: My Active Orders 02/02/20 21:00 NIFEdipine [Procardia XL] 30 mg PO BID - Assessment Assessment:: 30yo s/p 1LTCD for failed IOL, being induced for preeclampsia with severe features. POD#4 - Plan Plan:: Discharge home today. Reviewed preeclampsia signs/symptoms and when to call clinic. Has BP check on Thursday. Reviewed post-op precautions. All questions answered.
[2020-02-03] MEDS: Docusate Sodium 100 MG Cap PO SCH (09:14)
[2020-02-03] MEDS: NIFEdipine 30 MG Tab.ER PO SCH (09:14)
== END 2020-02-03 13:05 | disposition home or self-care (01) | DRG 807 ==
LOC: MW.OB 08:29 → OBSVTOIN 01-30 08:29 → MW.OB 01-30 13:29
PROVIDERS: ADMIT Obstetrics & Gynecology; ATTEND Obstetrics & Gynecology
PROC: 10E0XZZ Delivery of Products of Conception, External Approach (ICD-10-PCS; principal; 2020-01-28)
PROC: 3E0P7VZ Introduction of Hormone into Female Reproductive, Via Natural or Artificial Opening (ICD-10-PCS; 2020-01-28)
PROC: 10907ZC Drainage of Amniotic Fluid, Therapeutic from Products of Conception, Via Natural or Artificial Opening (ICD-10-PCS; 2020-01-28)
PROC: 4A1HXCZ Monitoring of Products of Conception, Cardiac Rate, External Approach (ICD-10-PCS; 2020-01-28)
PROC: 3E033VJ Introduction of Other Hormone into Peripheral Vein, Percutaneous Approach (ICD-10-PCS; 2020-01-28)
PROC: 3E0R3BZ Introduction of Anesthetic Agent into Spinal Canal, Percutaneous Approach (ICD-10-PCS; 2020-01-28)
DX: O14.14 Severe pre-eclampsia complicating childbirth (principal); Z37.0 Single live birth; Z3A.38 38 weeks gestation of pregnancy; O24.429 Gestational diabetes mellitus in childbirth, unspecified control; Z11.59 Encounter for screening for other viral diseases
CPT/HCPCS: 01967; 01968; 36415; 51702; 59025; 80053; 82570; 82962; 83735; 84156; 84550; 85025; 86140; 86592; 86593; 86850; 86900; 86901; 88307; A9270-GY; J1885; J2270; J2300; J2590; J2704; J3475; J7120; U0002

== ENCOUNTER 2021-11-05 05:15 | Inpatient (IN) | payer OTHER ==
[~2021-11-05 05:15] MED LIST: Acetaminophen/oxyCODONE 325-5 MG Tab PO PRN; Albuterol 0.083% 2.5 MG/3 ML Neb Soln NEB PRN; HYDROmorphone 1 MG/ML Syringe IVPUSH PRN; Lactated Ringers 1,000 ML IV SCH; Metoclopramide 10 MG/2 ML SDV IVPUSH PRN; Morphine 4 MG/ML VIAL IVPUSH PRN; Naloxone 0.4 MG/ML SDV IVPUSH PRN; Ondansetron 4 MG/2 ML SDV IVPUSH PRN; diphenhydrAMINE 50 MG/ML SDV IVPUSH PRN; ePHEDrine 50 MG/ML SDV IVPUSH PRN; fentaNYL 100 MCG/2 ML SDV IVPUSH PRN
[2021-11-05] MEDS ORDERED: Sodium Chloride 0.9% 10 ML Syringe FLUSH PRN (07:08)
[2021-11-05] MEDS ORDERED: Sodium Chloride 0.9% 2.5 ML Syringe FLUSH PRN (07:08)
[2021-11-05] MEDS ORDERED: Sodium Chloride 0.9% 20 ML SDV IV PRN (07:08)
[2021-11-05] MEDS ORDERED: Citric Acid/Sodium Citrate Solution 30 ML Cup PO ONE (07:08)
[2021-11-05] MEDS ORDERED: Oxytocin/0.9 % Sodium Chloride 30 UNIT/500 ML BAG IV SCH (07:15)
[2021-11-05] MEDS ORDERED: Morphine PF 10 MG/10 ML SDV ONE (07:30)
[2021-11-05] MEDS ORDERED: Ondansetron 4 MG/2 ML SDV ONE ×2 (07:30)
[2021-11-05] MEDS ORDERED: fentaNYL 100 MCG/2 ML SDV ONE (07:30)
[2021-11-05] MEDS ORDERED: Lidocaine 2% 100 MG/5 ML Syringe ONE (07:30)
[2021-11-05] MEDS ORDERED: Octyl 2-Cyanoacrylate 1 Tube ONE (07:37)
[2021-11-05] MEDS ORDERED: Oxytocin 10 Units/1 ML SDV ONE ×3 (07:44→07:45)
[2021-11-05] MEDS ORDERED: ceFAZolin 1 GM Vial ONE ×2 (07:44)
[2021-11-05] MEDS ORDERED: Dexamethasone 4 MG/ML 5 ML MDV ONE (07:45)
[2021-11-05] MEDS ORDERED: Ropivacaine 0.5% 5 MG/ML 30 ML SDV ONE ×2 (07:45)
[2021-11-05] MEDS ORDERED: Phenylephrine 1% 10 MG/ML SDV ONE (07:45)
[2021-11-05] MEDS ORDERED: Misoprostol 200 MCG Tab RECTAL PRN (10:31)
[2021-11-05] MEDS ORDERED: Bisacodyl 10 MG Supp RECTAL PRN (10:31)
[2021-11-05] MEDS ORDERED: Lanolin 100% Cream 7 GM Tube TOP PRN (10:31)
[2021-11-05] MEDS ORDERED: Acetaminophen/oxyCODONE 325-5 MG Tab PO PRN (10:31)
[2021-11-05] MEDS ORDERED: diphenhydrAMINE 50 MG/ML SDV IVPUSH PRN (10:31)
[2021-11-05] MEDS ORDERED: Tranexamic Acid 1,000 MG in Sodium Chloride 0.9% 100 ML IV PRN (10:31)
[2021-11-05] MEDS ORDERED: Methylergonovine 0.2 MG/1 ML Amp IM PRN (10:31)
[2021-11-05] MEDS ORDERED: Ondansetron 4 MG/2 ML SDV IVPUSH PRN (10:31)
[2021-11-05] MEDS ORDERED: Lactated Ringers 1,000 ML IV SCH (10:45)
[2021-11-05] MEDS: Ketorolac 30 MG/ML SDV IVPUSH SCH ×2 (11:18→18:10)
[2021-11-05] MEDS ORDERED: Meperidine PF 25 MG/ML SDV IVPUSH ONE (11:27)
[2021-11-05] MEDS ORDERED: Labetalol 100 MG Tab PO ONE (12:35)
[2021-11-05] MEDS ORDERED: NIFEdipine 10 MG Cap PO ONE (14:22)
[2021-11-05 15:30] LABS: BLOOD UREA NITROGEN,BUN 9 mg/dL (7.0-18.0); CARBON DIOXIDE,CO2 20.9 mmol/L (21.0-32.0); CHLORIDE,CL 104 mmol/L (98-107); GLUCOSE RANDOM 79 mg/dL (74-106); SODIUM,NA 136 mmol/L (136-145)
[2021-11-05] MEDS: NIFEdipine 30 MG Tab.ER PO SCH (21:12)
[2021-11-05] MEDS: Docusate Sodium 100 MG Cap PO SCH (21:14)
[2021-11-06] MEDS: Ketorolac 30 MG/ML SDV IVPUSH SCH ×3 (00:15→11:21)
[2021-11-06 06:02] LABS: BLOOD UREA NITROGEN,BUN 8 mg/dL (7.0-18.0); CARBON DIOXIDE,CO2 23.5 mmol/L (21.0-32.0); CHLORIDE,CL 104 mmol/L (98-107); GLUCOSE RANDOM 85 mg/dL (74-106); POTASSIUM,K 3.6 mmol/L (3.5-5.1); SODIUM,NA 139 mmol/L (136-145)
[2021-11-06] MEDS: Docusate Sodium 100 MG Cap PO SCH ×2 (09:38→21:01)
[2021-11-06] MEDS: NIFEdipine 30 MG Tab.ER PO SCH (09:38)
[2021-11-06] MEDS: Acetaminophen/oxyCODONE 325-5 MG Tab PO PRN ×3 (09:42→22:34)
[2021-11-06] MEDS: Ibuprofen 800 MG Tab PO PRN (18:14)
[2021-11-07] MEDS: Ibuprofen 800 MG Tab PO PRN ×2 (02:06→11:31)
[2021-11-07] MEDS: Acetaminophen/oxyCODONE 325-5 MG Tab PO PRN ×3 (02:42→11:32)
[2021-11-07] MEDS: Docusate Sodium 100 MG Cap PO SCH (09:14)
[2021-11-07] MEDS: NIFEdipine 30 MG Tab.ER PO SCH (09:15)
== END 2021-11-07 12:00 | disposition home or self-care (01) | DRG 787 ==
LOC: MW.OB 05:15
PROVIDERS: ADMIT Obstetrics & Gynecology; ATTEND Obstetrics & Gynecology
PROC: 10D00Z1 Extraction of Products of Conception, Low, Open Approach (ICD-10-PCS; principal; 2021-11-05)
DX: O34.211 Maternal care for low transverse scar from previous cesarean delivery (principal); O10.92 Unspecified pre-existing hypertension complicating childbirth; Z37.0 Single live birth; Z3A.39 39 weeks gestation of pregnancy; Z86.16 Personal history of COVID-19; Z20.822 Contact with and (suspected) exposure to COVID-19
CPT/HCPCS: 36415; 59025; 80053; 82570; 82947; 84156; 85025; 85027; 86850; 86900; 86901; A9270-GY; J0131; J0690; J1100; J1790; J1885; J2175; J2274; J2370; J2405; J2590; J2795; J3010; J7120; U0002